=== PATIENT | male | born 1955 | race Caucasian/White ===

== ENCOUNTER → 2020-04-25 03:04 | Outpatient (CLI) | payer MEDICARE, OTHER, SELFPAY ==
[2020-04-25 18:10] LABS: SARS-CoV-2 RNA PCR Negative
== END ==
PROVIDERS: PCP Internal Medicine; Visit Provider Internal Medicine Gastroenterology
DX: Z01.812 Encounter for preprocedural laboratory examination (principal); Z20.822 Contact with and (suspected) exposure to COVID-19
CPT/HCPCS: C9803; U0003; U0005

== ENCOUNTER 2020-04-28 01:35 | Day surgery (SDC) | payer MEDICARE, OTHER, SELFPAY ==
[2020-04-22 08:39] VITALS: BMI 27.6
[2020-04-28 06:30] VITALS: BP 150/80; PULSE 51; RESP 20; TEMP 36.8; O2SAT 100; BMI 27.2
[2020-04-28 06:49] LABS: Glucose Point of Care 116 (65-105)
[2020-04-28] MEDS: LACTATED RINGERS 1,000 ML 150 ML IV CONT (06:49)
--- NOTE | 2020-04-28 07:05 | WPDANESEPPF ---
Anes - Initial Pre Proc Eval Procedure: Operation Date: 04/28/20 07:30 Proposed Procedures p Screening Colonoscopy - Federico Sow MD Date/Time: 04/28/20 07:05 Surgeon: Federico Sow MD Pre Op Diagnosis: neoplasm screening Patient Data Age: 64 Gender: M Height: 1.75 m Weight: 83.6 kg Last Vital Signs Temp 36.8 C 04/28/20 06:30 Pulse 51 L 04/28/20 06:30 Resp 20 04/28/20 06:30 BP 150/80 H 04/28/20 06:30 Pulse Ox 100 04/28/20 06:30 Allergies Allergy/AdvReac Type Severity Reaction Status Date / Time No Known Allergies Allergy Verified 04/28/20 06:29 Home Medications Medication Instructions Recorded Confirmed Type amlodipine 10 mg PO DAILY 04/22/20 04/28/20 History atorvastatin 20 mg PO DAILY 04/22/20 04/28/20 History chlorthalidone 25 mg PO DAILY 04/22/20 04/28/20 History fluocinonide 1 applic TOPICAL BID 04/22/20 04/28/20 History losartan 100 mg PO DAILY 04/22/20 04/28/20 History metformin 500 mg PO BID 04/22/20 04/28/20 History sodium,potassium,mag sulfates See Rx Instructions .ROUTE 04/22/20 Rx [Suprep Bowel Prep Kit] .COMPLEX #1 ml Laboratory Tests 04/28/20 06:46 POC Capillary Glucose 116 mg/dl H mg/dl (65-105) Patient hx anesthesia problems: none Family hx anesthesia problems: none PMFSH Past Medical History Medical History (Updated 04/28/20 @ 07:07 by Alex Shin MD) Diabetes HTN (hypertension) Hyperlipidemia Family History Family History (Updated 10/17/15 @ 23:19 by DOCTOR UNKNOWN) Sibling Family history of diabetes mellitus in first degree relative Father Family history of congestive heart failure Family history of heart disease in male family member before age 55 Family history of hearing loss Mother Family history of hearing loss Social History Social History Smoking status: Never smoker Alcohol intake: never Substance use type: does not use Living arrangements: with family Spiritual care concerns: No Anes - Eval Final PreProcedure Day of Procedure 04/28/20 07:05 Patient weight: overweight Heart: regular rate and rhythm Lungs: clear to auscultation and normal air movement Airway: Mallampati scale class II Neurological: alert and oriented Last oral intake: >/= 8 hours ASA classification: III Emergent: no Anesthetic plan: proceed Anesthesia type and monitoring: general GIVS Informed Consent: The patient's anesthetic plan and its attendant risks and benefits were discussed with the patient/family/POA. Questions were solicited and answers provided to the satisfaction of the patient/family/POA.
--- NOTE | 2020-04-28 07:31 | WPDGICN ---
Assessment and Plan Assessment and plan (1) Family history of colonic polyps: Code(s): Z83.71 - Family history of colonic polyps Status: Acute Assessment and Plan: Patient states his father has had colon polyps his brothers had colon cancer. Plan is for surveillance colonoscopy now on a 5 year intervals in the future because of the strong family history. (2) Encounter for colonoscopy in patient with family history of colon cancer: Code(s): Z12.11 - Encounter for screening for malignant neoplasm of colon; Z80.0 - Family history of malignant neoplasm of digestive organs Status: Acute GI Consult Note Consult date/time: 04/28/20 07:31 HPI: Anibal Taylor is a 64 year old male Presents for screening colonoscopy. Family history is significant that his father had colon polyps. His brother had colon polyps with carcinoma. Patient states that his own weight appetite bowel movements are normal. He denies abdominal pain. He denies any bleeding. Bowel habits are regular. Patient gives a history of GUZMAN. States he has had liver pancreas kidney cysts. He reports having had an ERCP with allergic reaction to contrast dye in the past. This is not felt to be an active problem. Review of Systems Review of Systems: All systems reviewed & are unremarkable except as noted in HPI and below PMFSH Past Medical History Medical History (Updated 04/28/20 @ 07:33 by Federico Sow MD) Diabetes HTN (hypertension) Hyperlipidemia Family History Family History (Updated 10/17/15 @ 23:19 by DOCTOR UNKNOWN) Sibling Family history of diabetes mellitus in first degree relative Father Family history of congestive heart failure Family history of heart disease in male family member before age 55 Family history of hearing loss Mother Family history of hearing loss Social History Social History Smoking status: Never smoker Alcohol intake: never Substance use type: does not use Living arrangements: with family Spiritual care concerns: No Meds Home Medications and Allergies Home Medications Medication Instructions Recorded Confirmed Type amlodipine 10 mg PO DAILY 04/22/20 04/28/20 History atorvastatin 20 mg PO DAILY 04/22/20 04/28/20 History chlorthalidone 25 mg PO DAILY 04/22/20 04/28/20 History fluocinonide 1 applic TOPICAL BID 04/22/20 04/28/20 History losartan 100 mg PO DAILY 04/22/20 04/28/20 History metformin 500 mg PO BID 04/22/20 04/28/20 History sodium,potassium,mag sulfates See Rx Instructions .ROUTE 04/22/20 Rx [Suprep Bowel Prep Kit] .COMPLEX #1 ml Allergies Allergy/AdvReac Type Severity Reaction Status Date / Time No Known Allergies Allergy Verified 04/28/20 06:29 Vital Signs Vital Signs - 24 hr 04/28/20 06:30 Temperature 98.3 F Pulse Rate 51 L Respiratory Rate 20 Blood Pressure 150/80 H Pulse Oximetry 100 Exam Narrative: Exam Narrative: Physical exam reveals patient to be alert. Vital signs stable. HEENT exam unremarkable. Lungs are clear to auscultation and percussion. Heart is without murmur or extra sounds. Abdominal exam bowel sounds are present soft nontender with no organomegaly. Digital external rectal exam is normal.
[2020-04-28 07:52] VITALS: BP 93/60; PULSE 51; RESP 14; O2SAT 92
[2020-04-28 08:02] VITALS: BP 103/59; PULSE 61; RESP 23; O2SAT 95
[2020-04-28 08:12] VITALS: BP 117/73; PULSE 50; RESP 18; O2SAT 95
== END 2020-04-28 08:30 | disposition home or self-care (01) ==
PROVIDERS: PCP Internal Medicine; Visit Provider Internal Medicine Gastroenterology
PROC: 0DJD8ZZ Inspection of Lower Intestinal Tract, Via Natural or Artificial Opening Endoscopic (ICD-10-PCS; CPT 45378; principal; 2020-04-28 07:30)
DX: Z12.11 Encounter for screening for malignant neoplasm of colon (principal); K64.8 Other hemorrhoids; Z83.71 Family history of colonic polyps; Z80.0 Family history of malignant neoplasm of digestive organs; I10 Essential (primary) hypertension; E78.5 Hyperlipidemia, unspecified; E11.9 Type 2 diabetes mellitus without complications; Z79.84 Long term (current) use of oral hypoglycemic drugs
CPT/HCPCS: G0105; 82948; J2001; J2704; J7120

== ENCOUNTER 2023-11-25 08:03 | Emergency (ER) | payer MEDICARE, OTHER, SELFPAY ==
[2023-11-25] VITALS (11 sets, daily range): BP systolic 129–157; BP diastolic 62–81; PULSE 51–60; RESP 13–20; TEMP 36.7; O2SAT 98–100
--- NOTE | ~2023-11-25 | CT_ITS ---
CT of the Abdomen and Pelvis: Indication: Rectal bleeding, abdominal pain Technique: 2.5 mm axial scans were obtained through the abdomen and pelvis following intravenous adm inistration of 100 cc of Omnipaque 350. Dose reduction technique was used on this scan by utilizing a utomated exposure control and iterative reconstruction technique. The dose-length product (DLP) was 4 54.21 mGy-cm. Findings: Scans through the lung bases are unremarkable. The liver, spleen, pancreas, gallbladder, left adrenal gland, and kidneys are within normal limits. 1 .4 cm right adrenal nodule present. There are atherosclerotic calcifications of the aorta. No lympha denopathy. Suggestion of extensive wall thickening of the distal transverse colon and descending colon. No bowel obstruction. No abscess or free air evident. Images through the pelvis were performed. Urinary bladder unremarkable. Prostate gland is enlarged. N o ascites. L1 vertebroplasty noted. Impression: Suspected wall thickening of the distal transverse colon and descending colon. Findings are suspiciou s for infectious/inflammatory colitis. Ischemic bowel felt to be less likely, though not definitively excluded. 1.4 cm right adrenal nodule, stable since prior MR from 12/06/2009, therefore consistent with a benign lesion. Reviewed, dictated and finalized at location . Impression: Suspected wall thickening of the distal transverse colon and descending colon. Findings are suspicious for infectious/inflammatory colitis. Ischemic bowel fel t to be less likely, though not definitively excluded. 1.4 cm right adrenal nodule, stable since prior MR from 12/06/2009, therefore co nsistent with a benign lesion.
--- NOTE | 2023-11-25 08:23 | ED.GIBLEED ---
HPI - GI Bleed General Chief complaint: GI Bleed Stated complaint: blood in stool Time Seen by Provider: 11/25/23 08:05 History of Present Illness HPI Narrative: This is a 68-year-old male with a past medical history significant for hypertension, diabetes, chronic kidney disease who presents to the emergency department with a chief complaint of GI bleeding. Patient states that he recently underwent procedure on his right upper extremity for carpal tunnel and cubital tunnel release on Tuesday last week. Patient was under general anesthesia. He states he has been constipated since then and yesterday he took multiple laxatives and prune juice cocktails to try and move his bowels and he had resultant diarrhea for a total of 12 bathroom trips. He states he was having bowel movements throughout the day and then noticed 4 bowel movement in a row he was passing several blood clots admixed with the stool that was loose. He has a history of internal hemorrhoids without any procedures previously. Last colonoscopy without any polyps or concerns for cancer/diverticula. Endorses a cramping abdominal pain especially in the left lower side that was onset prior to the bleeding episodes. He states the blood clots or dark in appearance but when he wipes he notices streaks of bright red blood. Denies any nausea, vomiting, chest pain, shortness a breath, abdominal pain in the epigastric or right side. No back pain. No fever chills. Related Data Home Medications Medication Instructions Recorded Confirmed amlodipine 10 mg tablet 10 mg PO DAILY 04/22/20 10/26/21 atorvastatin 20 mg tablet 20 mg PO DAILY 04/22/20 10/26/21 chlorthalidone 25 mg tablet 25 mg PO DAILY 04/22/20 10/26/21 fluocinonide 0.05 % topical cream 1 applic topical BID 04/22/20 10/26/21 losartan 100 mg tablet 100 mg PO DAILY 04/22/20 10/26/21 metformin 500 mg tablet 500 mg PO BID 04/22/20 10/26/21 doxazosin 2 mg tablet 2 mg PO DAILY 10/26/21 10/26/21 famotidine 20 mg tablet 20 mg PO DAILY 10/26/21 10/26/21 sildenafil 100 mg tablet (Viagra) 100 mg PO DAILY PRN 10/26/21 10/26/21 testosterone 200 mg implant pellet 200 mg subcut ONCE 10/26/21 10/26/21 dapagliflozin propanediol 10 mg mg 11/25/23 tablet (Farxiga) Allergies Allergy/AdvReac Type Severity Reaction Status Date / Time dimenhydrinate Allergy Intermediate Hallucinati Verified 10/26/21 09:26 [From Dramamine] ng Review of Systems Review of Systems: [facility] Past Medical History Medical History Autoimmune disease Diabetes HTN (hypertension) Hyperlipidemia Kidney disease Migraine Surgical History Surgical History History of ear surgery Family History Family History Sibling Family history of diabetes mellitus in first degree relative Father Family history of congestive heart failure Family history of heart disease in male family member before age 55 Family history of hearing loss Hypertension Mother Family history of hearing loss Social History Social History Smoking status: Never smoker Alcohol intake: current Substance use type: does not use Living arrangements: with family Occupation/Education: retired Spiritual care concerns: No Exam Narrative: GENERAL: [Well-appearing, well-nourished, and in no acute distress.] HEAD: [Normocephalic, atraumatic.] EYES: [PERRLA and EOMI.] ENT: Nares clear, no rhinorrhea or epistaxis. Mucous membranes moist. NECK: Supple. CHEST: [Clear to auscultation. No respiratory distress.] HEART: [Regular rate and rhythm]. No murmur heard. [Normal peripheral pulses.] ABDOMEN: [Soft, nondistended], [nontender], [No rigidity or guarding] RECTAL: No external hemorrhoids or fissures. No ten
[2023-11-25 08:53] LABS: Basophils Percent Auto 0.3 % (0.2-1.2); Eosinophils Absolute Auto 0.5 K/mm3 (0-0.3); Hemoglobin 13.7 g/dL (14.0-18.0); Immature Granulocyte Absolute 0.05 K/mm3 (0.00-0.031); Immature Granulocyte Percent A 0.4 % (0-0.5); Lymphocytes Absolute Auto 1.39 K/mm3 (0.9-3.2); Lymphocytes Percent Auto 11.4 % (18.3-44.2); Mean Corpuscular HGB Conc 33.4 g/dl (32-36); Mean Corpuscular Hemoglobin 29.3 pg (26-34); Mean Corpuscular Volume 87.8 fl (80-100); Mean Platelet Volume 9.5 fl (7.4-10.4); Monocytes Absolute Auto 0.8 K/mm3 (0.1-0.6); Monocytes Percent Auto 6.9 % (2.6-8.5); Neutrophils Absolute Auto 9.4 K/mm3 (1.3-6.7); Platelet Count Result 221 k/mm3 (150-375); Red Blood Count 4.67 M/mm3 (4.6-6.20); Red Cell Distribution Width 14.2 % (11.5-14.5); White Blood Count 12.2 K/mm3 (4.5-10.0)
[2023-11-25 09:04] LABS: INR 0.9; Prothrombin Time 12.6 Seconds (11.1-14.7)
[2023-11-25 09:05] LABS: Partial Thromboplastin Time 26.7 Seconds (22.3-36.8)
[2023-11-25 09:06] LABS: Lactic Acid Reflex 0.9 mmol/L (0.7-2.0)
[2023-11-25 09:07] LABS: Alanine Aminotransferase 33 U/L (6-50); Albumin Level 4.4 g/dL (3.5-5.1); Alkaline Phosphatase 60 U/L (38-126); Anion Gap 11 mmol/L (4-12); Aspartate Amino Transferase 33 U/L (17-59); Bilirubin,Total 0.7 mg/dL (0.2-1.3); Blood Urea Nitrogen 28 mg/dL (9-20); Calcium 9.7 mg/dL (8.4-10.2); Carbon Dioxide 25 mmol/L (22-30); Chloride 100 mmol/L (98-107); Estimated CRCL calculation 31 ml/min; Estimated Glomerular Filt Rate 33; Glucose 142 mg/dL (65-110); Magnesium 1.8 mg/dL (1.6-2.3); Potassium 4.5 mmol/L (3.4-5.0); Sodium 136 mmol/L (137-145)
[2023-11-25] MEDS: SODIUM CHLORIDE 0.9% IV 1,000 ML 999 ML IV CONT (09:57)
[2023-11-25] MEDS: PANTOPRAZOLE SODIUM IV 40 MG VIAL IV PUSH (09:58)
--- NOTE | 2023-11-25 10:07 | PC.NURSE ---
MD at bedside updating pt on imaging and lab results, and further POC.
== END 2023-11-25 11:21 | disposition home or self-care (01) ==
PROVIDERS: Emergency Provider Student in an Organized Health Care Education/Training Program; PCP Internal Medicine
DX: K52.9 Noninfective gastroenteritis and colitis, unspecified (principal); K62.5 Hemorrhage of anus and rectum; I12.9 Hypertensive chronic kidney disease with stage 1 through stage 4 chronic kidney disease, or unspecified chronic kidney disease; E11.22 Type 2 diabetes mellitus with diabetic chronic kidney disease; N18.9 Chronic kidney disease, unspecified; M35.9 Systemic involvement of connective tissue, unspecified
CPT/HCPCS: 36415; 74177; 80053; 83605; 83735; 85025; 85610; 85730; 86850; 86900; 86901; 96361; 96374; 99284; J2470; J7030; Q9967

== ENCOUNTER 2024-03-20 09:47 | Outpatient (CLI) | payer MEDICARE, OTHER, SELFPAY ==
--- NOTE | ~2024-03-20 | XR_ITS ---
AP view of the pelvis and AP and lateral views of the [ ] hip Clinical history: Pain Findings: No acute fracture or dislocation is seen. Osseous alignment is anatomic. Bilateral hip and SI joint spaces are preserved. Soft tissues are unremarkable. Impression: No significant abnormality is seen. Reviewed, dictated and finalized at [facility]. [facility] MARKER Impression: No significant abnormality is seen.
== END 2024-03-20 09:48 | disposition home or self-care (01) ==
LOC: MICIMG 09:48
PROVIDERS: PCP Internal Medicine; Visit Provider Orthopaedic Surgery
DX: M70.61 Trochanteric bursitis, right hip (principal)
CPT/HCPCS: 73502

== ENCOUNTER 2024-04-10 10:54 | Outpatient (CLI) | payer MEDICARE, OTHER, SELFPAY ==
--- NOTE | ~2024-04-10 | MR_ITS ---
MRI of the lumbar spine Clinical History: Radiculopathy Technique: Axial T2-weighted images, and sagittal T1-weighted, T2-weighted, and and T2 fat-sat images were acquired. Findings: There is prior vertebroplasty at L1. No other fracture or sublocation seen. No bone marrow signal reality seen otherwise. At L1-L2, there is no significant disc bulge or herniation. There is moderate facet hypertrophy. No s mayelin canal stenosis or neural foraminal narrowing. At L2-L3, there is no disc bulge or herniation. There is moderate facet arthropathy. No spinal canal stenosis or neural foraminal narrowing. At L3-L4, there is no disc bulge or herniation. There is advanced facet arthropathy. No central canal stenosis or neural foraminal narrowing. At L4-L5, there is mild disc bulge with severe facet arthropathy. No central canal stenosis. There is mild left neural foraminal narrowing. Right neural foramen preserved. At L5-S1, there is minimal disc bulge with severe facet arthropathy. No central canal stenosis or sig nificant neural foraminal narrowing. Paravertebral soft tissues are unremarkable. Impression: Mild overall degenerative spondylosis, as above. Prior L1 vertebroplasty. Reviewed, dictated and finalized at location . [employer] Impression: Mild overall degenerative spondylosis, as above. Prior L1 vertebroplasty.
== END 2024-04-10 10:55 | disposition home or self-care (01) ==
LOC: GOSHIMG 10:55
PROVIDERS: PCP Orthopaedic Surgery; Visit Provider Orthopaedic Surgery
DX: M47.896 Other spondylosis, lumbar region (principal); Z98.890 Other specified postprocedural states
CPT/HCPCS: 72148

== ENCOUNTER 2024-06-07 01:27 | Day surgery (SDC) | payer MEDICARE, OTHER, SELFPAY ==
[2024-05-31 09:02] VITALS: BMI 28.1
--- OUTSIDE RECORDS SUMMARY | 2024-06-07 01:31 | XMS_ITS | Data Portability ---
Author Organization [facility] [employer], Main Office Address [address] [place] [address] Care Team Providers Care Central Supply Assistant Name Role Phone JOÃO ENRIQUEZ Primary Care Provider [phone] JOÃO ENRIQUEZ Referring Provider Assessment No assessment recorded. Plan of Treatment Reminders Order Date Submit Date Provider Last Modified By Organization Details Last Modified Time Details Appointments None recorded. Lab None recorded. Referral None recorded. Procedures None recorded. Surgeries septoplasty (SURG) 2022 023 [email or web address] Not available 3 13:27:35 Imaging None recorded. Medication Orders Ciprodex 0.3 %-0.1 % ear drops,suspe nsion 2024 025 [email or web address] [id number] [facility], [facility], [place], [address], 5 11:21:45 OraMagic Plus 10 % oral rinse suspension 2023 024 [id number], [address] [facility], [place], [place], [id number], 4 10:38:51 Patient TargetsNo targets recorded. Patient Instructions Encounter Date Encounter Id Patient Instructions Last Modified By Organization Details Last Modified Time 04/13/2023 [id number] Scalp laceration healing well. Plan is to continue on current medications no need follow-up unless any signs of an infection or inflammation of show up. Portions of the record may have been created with voice recognition software. Occasional wrong-word or s ound-a-like substitutions may have occurred due to the inherent limitations of voice recognition software. Read the chart carefully and recognize, using context, where substitutions have occurred. Keep Appt: Tue 09:40 AM [place] [email or web address] Not available 04/13/2023 10:47:46 04/05/2024 [id number] Provided a tylor d and dated clearance form for a hearing aid trial to the right ear. Prescribed Ciprodex to be used twice a day for 7 days for Eustachian tube dysfunction to the right ear. Follow-up as needed. [email or web address] Not available 04/05/2024 10:18:59 Reason for Referral None Reported. Results Created Date Observation Date Name Description Value Unit Range Abnormal Flag Note LastModifiedBy Organization Detail LastModifiedTime 03/08/2003/08/2023 BASIC METAB OLIC PANEL sodium 137 mmol/ L 137-14 5 Not Available [facility] (Lab) [address] [place] [address], [id number], 03/08/2023 11:27:14 03/08/2003/08/2023 BASIC METAB OLIC PANEL potassium 4.8 mmol/ L 3.5-5. 1 Not Available [facility] (Lab) [address] [place] [address], [address], 03/08/2023 11:27:14 03/08/20 23 03/08/2023 BASIC METAB OLIC PANEL chloride 101 mmol/ L 98-107 Not Available [facility] (Lab) [address] [place] [address], [address], 03/08/2023 11:27:14 03/08/20 23 03/08/2023 BASIC METAB OLIC PANEL carbon dioxide 27 mmol/ L 22-30 Not Available [facility] (Lab) [address] [place] [address], [address], 03/08/2023 11:27:14 03/08/20 23 03/08/2023 BASIC METAB OLIC PANEL anion gap 13.8 mmol/ L 14-22 low Not Available [facility] (Lab) [address] [place] [address], [address], 03/08/2023 11:27:14 03/08/20 23 03/08/2023 BASIC METAB OLIC PANEL glucose 113 mg/dL 70-99 high Not Available [facility] (Lab) [address] [place], [address], 03/08/2023 11:27:14 03/08/20 23 03/08/2023 BASIC METAB OLIC PANEL BUN 30 mg/dL 8-19 high Not Available [facility] (Lab) [address] [place], [address], 03/08/2023 11:27:14 03/08/20 23 03/08/2023 BASIC METAB OLIC PANEL creatinine 2.47 mg/dL 0.66-1 .25 high Not Available [facility] (Lab) [address] [place], [address], 03/08/2023 11:27:14 03/08/20 23 03/08/2023 BASIC METAB OLIC PANEL GFR 26 Refer ence Range : [place] GFR Healt hy Adult : >60 mL/mi n/1.7 3 m2 Chron ic Kidne y Disea se: 15-60 mL/mi n/1.7 3 m2 Kidne y Failu re: <15/m L/min /1.73 m2 www.n iddk. nih.g ov The MDRD study equat ion has not been valid ated in child tanya <18 years of age; pregn ant women ; the elder ly >85 years of age; or in some racia l or ethni c subgr oups, such as Hismo nics. Outsi de the valid ated cece eters , estim ated GFR is less accur ate, requi ring clini teena judgm ent on a case- by-ca se basis . Clini teena inter preta tion for other races and ages must be made by the clini eric. The MDRD study equat ion has not been valid ated for the evalu ation of serum creat inine relat ed to nutri shukri l statu s or medic ation usage . For perso ns <18 years of age, a pedia tric GFR calcu lator is avail able on the F websi te: https ://ww w.nallely santiago.o rg/pr ofess ional s/kdo qi/gf r_cal culat or Not Available [facility] (Lab) [address] [place], [address], 03/08/2023 11:27:14 03/08/20 23 03/08/2023 BASIC METAB OLIC PANEL calcium 9.6 mg/dL 8.4-10 .2 Not Available [facility] (Lab) [address] [place], [address], 03/08/2023 11:27:14 07/15/19 24 07/13/2023 CT, abdom en + pelvi s, w/o contr ast No observ ation record ed. [address] [facility] [address] [place], [address], 07/15/2023 09:32:29 11/25/19 24 11/25/2023 CT, abdom en + pelvi s, w/o contr ast No observ ation record ed. [address], [place], [address], 11/25/2023 12:07:48 03/20/20 24 03/20/2024 XR, abdom en No observ ation record ed. [address] [facility] [address], [place], [address], 03/20/2024 14:41:46 04/05/19 25 03/19/2024 audio gram + tympa nogra m No observ ation record ed. [email or web address] Nely Ayon AUD [address] [facility] [place], [place], [address], 04/23/2024 16:22:21 04/27/19 25 04/10/2024 MRI, lumba r plexu s, w/o contr ast No observ ation record ed. [address] [facility] [address] [facility] [address], [place], [address], 05/03/2024 13:32:00 05/03/19 25 MRI, lumba r spine , w/o contr ast No observ ation record ed. [address] [facility] [facility] [address], [place], [address], 05/03/2024 13:32:00 Result Notes None recorded. Problems Name Problem SNOMED Code Status Onset Date Resolution Date Notes Provider Name and Address Organization Details Recorded Time Renewal of prescripti on Active 2021 Not Available [facility] 4 01:22:57 Testicular hypofuncti on 919602328 Active Not Available [facility] 4 01:22:57 Injury of right ankle 7741157502403 9100 Active Not Available [facility] 4 01:22:57 Benign essential hypertensi on 9883836 Active Not Available [facility] 4 01:22:57 Plantar fasciitis of right foot 4855778756430 9101 Active 2020 Not Available [facility] 4 01:22:57 Sinus tarsi syndrome of right ankle 6878203289074 9107 Active 2021 Not Available [facility] 4 01:22:57 Pain of right ankle joint 3772381216776 9106 Active 2021 Not Available [facility] 4 01:22:57 Chronic pancreatit is 509309365 Active Not Available [facility] 4 01:22:57 Pure hyperchole sterolemia 520476111 Active Not Available [facility] 4 01:22:57 Low back pain 633737282 Active 2022 Not Available [facility] 4 01:22:57 Chest pain 12106733 Active Not Available [facility] 4 01:22:57 Family history of cancer of colon 840645239 Active 2020 Not Available [facility] 4 01:22:57 Type 2 diabetes mellitus without complicati on 415215163 Active Not Available [facility] 4 01:22:57 Depressive disorder 42291726 Active Not Available [facility] 4 01:22:57 Visual impairment 866650117 Active Not Available [facility] 4 01:22:57 Postconcus juan pablo syndrome 72107727 Active 2018 Not Available [facility] 4 01:22:57 Chronic kidney disease stage 3 106800846 Active 2019 Not Available [facility] 4 01:22:57 Type 2 diabetes mellitus 80219183 Active Not Available [facility] 4 01:22:57 Hypogonadi sm 47492938 Active Not Available [facility] 4 01:22:57 Cough 59217927 Active 2021 Not Available [facility] 4 01:22:57 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 2021 Not Available [facility] 4 01:22:57 COVID-19 002473753 Active 2021 Not Available [facility] 4 01:22:57 Male hypogonadi sm 08046686 Active 2022 Not Available [facility] 4 01:22:57 Lesion of left lower leg bone 5318459020093 9105 Active 2022 Not Available [facility] 4 01:22:57 Disorder of prostate 60106863 Active 2022 Not Available [facility] 4 01:22:57 Deviated nasal septum 434456338 Active 2022 Not Available [facility] 4 01:22:57 Acute sinusitis 96081357 Active 2022 Not Available [facility] 4 01:22:57 Aphthous ulcer of mouth 729710846 Active 2023 Not Available [facility] 4 01:22:57 Upper respirator y infection 65785360 Active 2023 Not Available [facility] 4 01:22:57 Scalp laceration 970602248 Active 2023 Not Available [facility] 4 01:22:57 Uvulitis 752389578 Active 2023 João Enriquez MD [address], [place], [address] , [facility] [employer] [facility] [employer] [facility] 4 14:25:34 Adenoma of right adrenal gland 7257932400129 9101 Active 2023 João Enriquez MD [address], [address], [place], [address] , [employer] [facility] [employer] [facility] 4 09:36:29 Asymmetric al sensorineu ral hearing loss 472035401 Active 2024 [employer] [address], [place], [address] , [employer] [facility] [employer] [facility] 5 10:14:59 Dysfunctio n of right eustachian tube 9955592162794 101 Active 2024 [employer] [address], [place], [address] , [employer] [facility] [employer] [facility] 5 10:17:51 Lumbar radiculopa thy 137476199 Active 2024 João Enriquez MD [address], [address], [place], [address] , [employer] [facility] [employer] [facility] 5 11:46:35 Problem Notes None recorded. Procedures Surgical History Date Name Laterality Status Provider Name and Address Organization Details Recorded Time 03/16/20 23 nasal septoplasty completed JOAN Garrett [facility] [employer] [facility] 03/18/2023 12:41:53 03/16/20 23 SEPTOPLASTY (SURG) completed Mili Henry RN [facility] [employer] [facility] 03/25/2023 09:44:58 04/28/19 21 Colonoscopy with biopsy completed Not Available [facility] 05/19/2022 06:42:53 procedure on ear completed Mili Henry RN [facility] [employer] [facility] 04/05/2024 09:34:52 Imaging Results Imaging Date Name Status LastModified by Organization Details Last Modified Time 07/13/2023 CT, abdomen + pelvis, w/o contrast completed [email or web address] [facility] [employer] [address] [place], [address], 07/15/2023 09:32:29 11/25/2023 CT, abdomen + pelvis, w/o contrast completed [address], [place], [address], 11/25/2023 12:07:48 03/20/2024 XR, abdomen completed [address] Sandra ging [address], [place], [address], 03/20/2024 14:41:46 03/19/2024 audiogram + tympanogram completed [email or web address] Nely Ayon AUD [address] [place], [address], 04/23/2024 16:22:21 04/10/2024 MRI, lumbar plexus, w/o contrast completed [address] [facility] [address] [place] [address] [address], [place], [address], 05/03/2024 13:32:00 05/03/2024 MRI, lumbar spine, w/o contrast completed [address], [place], [address], 05/03/2024 13:32:00 Procedure Notes None recorded. Medical Equipment None Reported. Allergies No known drug allergies Medications Name Sig Start Date Stop Date Status Note LastModified by Organization Details LastModified Time compound drug 04/05 completed Not Available Not Available Not Available Pravachol 40 mg tablet Take 1 tablet(s) every day by oral route at bedtime. 10/05 completed Not Available Not Available Not Available Zocor 20 mg tablet Take 1 tablet every day by oral route. active Not Available Not Available No t Available amoxicillin 500 mg capsule Take 1 capsule 3 times a day by oral route for 10 days. 11/08 completed Not Available Not Available Not Available metformin 500 mg tablet TAKE 1 TABLET BY MOUTH THREE TIMES A DAY active Not Available Not Available No t Available prednisone 10 mg tablet TAKE 2 TABLETS (20MG) BY MOUTH TWICE DAILY FOR 10 DAYS active Not Available Not Available No t Available atorvastati n 20 mg tablet TAKE 1 TABLET BY MOUTH EVERY DAY active Not Available Not Available No t Available azithromyci n 250 mg tablet TK 2 TS PO ON DAY 1, THEN TK 1 T PO D FOR 4 DAYS 10/08 completed Not Available Not Available Not Available Lidocaine Viscous 2 % mucosal solution active Not Available Not Available Not Available benzonatate 200 mg capsule Take 1 capsule 3 times a day by oral route. active Not Available Not Available No t Available levetiracet am 500 mg tablet Take 1 tablet twice a day by oral route. 10/05 completed Not Available Not Available Not Available Lotrisone 1 %-0.05 % topical cream Apply by topical route twice daily to legs active Not Available Not Available No t Available hydrocodone 5 mg-acetamin ophen 325 mg tablet TAKE 1 TABLET BY MOUTH EVERY 6 HOURS active Not Available Not Available No t Available lisinopril 20 mg tablet Take 1 tablet every day by oral route. 10/10 completed Not Available Not Available Not Available penicillin V potassium 500 mg tablet TAKE 1 TABLET BY MOUTH FOUR TIMES DAILY 04/08 completed Not Available Not Available Not Available chlorthalid one 25 mg tablet TAKE 1 TABLET BY MOUTH EVERY DAY 03/02 completed Not Available Not Available Not Available ciprofloxac in 500 mg tablet TAKE 1 TABLET BY MOUTH EVERY 12 HOURS FOR 5 DAYS 04/05 completed Not Available Not Available Not Available Tamiflu 75 mg capsule Take 1 capsule twice a day by oral route for 5 days. 10/10 completed Not Available Not Available Not Available Wellbutrin SR 100 mg tablet, 12 hr sustained-r elease Take 1 tablet twice a day by oral route. active Not Available Not Available No t Available oxycodone-a cetaminophe n 5 mg-325 mg tablet TAKE 1 TABLET BY MOUTH EVERY 4-6 HOURS NEEDED FOR PAIN 04/08 completed Not Available Not Available Not Available triamcinolo ne acetonide 0.1 % dental paste active Not Available Not Available Not Available tamsulosin 0.4 mg capsule Take 1 capsule every day by oral route. 10/05 completed Not Available Not Available Not Available meclizine 25 mg tablet Take 1 tablet 3 times a day by oral route. 10/05 completed Not Available Not Available Not Available amlodipine 10 mg tablet TAKE 1 TABLET BY MOUTH EVERY DAY active Not Available Not Available No t Available hydrocodone 7.5 mg-acetamin ophen 325 mg tablet TAKE 1 TABLET BY MOUTH EVERY 4 HOURS NEEDED 04/13 completed Not Available Not Available Not Available cephalexin 500 mg capsule TAKE 1 CAPSULE BY MOUTH FOUR TIMES DAILY 04/13 completed Not Available Not Available Not Available metformin 1,000 mg tablet one twice a day active Not Available Not Available No t Available neomycin-po lymyxin-dex ameth 3.5 mg/mL-10,00 0 unit/mL-0.1 % eye drops 04/13 completed Not Available Not Available Not Available lisinopril 10 mg tablet one tablet daily 04/12 completed Not Available Not Available Not Available Pravachol 20 mg tablet once daily 06/07 completed Not Available Not Available Not Available gabapentin 300 mg capsule Take 1 capsule 3 times a day by oral route. 10/05 completed Not Available Not Available Not Available lisinopril 5 mg tablet once daily 11/11 completed Not Available Not Available Not Available Viagra 100 mg tablet TAKE 1 TABLET (100 MG) BY ORAL ROUTE ONCE DAILY NEEDED APPROXIMA TELY 1 HOUR BEFORE SEXUAL ACTIVITY 2019 active Not Available Not Available Not Avai lable testosteron e cypionate 200 mg/mL intramuscul ar oil INJECT 1.25 ML INTO THE MUSCLE EVERY OTHER WEEK, DISCARD REMAINDER IN VIAL active Not Available Not Available No t Available Pepcid 20 mg tablet Take 1 tablet twice a day by oral route. 03/02 completed Not Available Not Available Not Available methylpredn isolone 4 mg tablets in a dose pack FOLLOW PACKAGE DIRECTION S 04/05 completed Not Available Not Available Not Available albuterol sulfate HFA 90 mcg/actuati on aerosol inhaler INHALE 2 PUFFS BY MOUTH EVERY 6 HOURS active Not Available Not Available No t Available ketoconazol e 2 % topical cream APPLY TO FACE TWICE DAILY WHEN HAVING FLARES 03/02 completed Not Available Not Available Not Available fluocinonid e 0.05 % topical cream APPLY TOPICALLY TO THE AFFECTED AREA TWICE DAILY NEEDED active Not Available Not Available No t Available cefdinir 300 mg capsule TAKE 1 CAPSULE BY MOUTH EVERY 12 HOURS FOR 10 DAYS 04/13 completed Not Available Not Available Not Available losartan 100 mg tablet TAKE 1 TABLET BY MOUTH EVERY DAY active Not Available Not Available No t Available lisinopril 2.5 mg tablet Take 1 tablet every day by oral route. 2015 active Not Available Not Available Not Avai lable gentamicin 0.1 % topical ointment APPLY A PEA SIZED AMOUNT TO LEG WOUND THREE TIMES DAILY 04/13 completed Not Available Not Available Not Available BD Luer-Lucy Syringe 3 mL 21 gauge x 1 use to administe r testoster one every 2 weeks active Not Available Not Available No t Available doxazosin 2 mg tablet TAKE 1 TABLET BY MOUTH EVERY DAY active Not Available Not Available No t Available Blood Glucose Test strips one touch ultra test strips test twice a day active Not Available Not Available No t Available Mucinex 600 mg tablet, extended release Take 1 tablet every 12 hours by oral route. 04/01 completed Not Available Not Available Not Available ciprofloxac in 0.3 %-dexametha sone 0.1 % ear drops,suspe nsion INSTILL 4 DROPS INTO THE RIGHT EAR 2 TIMES PER DAY FOR 7 DAYS 04/30 completed Not Available Not Available Not Available Levitra 10 mg tablet Take 1 tablet every day by oral route. active Not Available Not Available No t Available Cialis 5 mg tablet Take 1 tablet every day by oral route. active Not Available Not Available No t Available Cialis 10 mg tablet Take 1 tablet as needed by oral route 4 erectile dysfuncti on. 09/29 completed Not Available Not Available Not Available Cialis 20 mg tablet Take 1 TABLET EVERY DAY an hour before sexual acitivty active Not Available Not Available No t Available Viagra 04/12 completed Not Available Not Available Not Available Expectorant active Not Available Not A vailable Not Available OraMagic Plus 10 % oral rinse suspension Take 15 mL by mucous route. 04/13 completed Not Available Not Available Not Available cholecalcif dolly (vitamin D3) 25 mcg (1,000 unit) tablet TAKE 1 TABLET BY MOUTH EVERY DAY active Not Available Not Available No t Available Suprep Bowel Prep Kit 17.5 gram-3.13 gram-1.6 gram oral solution DILUTE. PLEASE SEE MAILED INSTRUCTI ONS FROM DR. KUHN S OFFICE. 06/19 completed Not Available Not Available Not Available Farxiga 10 mg tablet TAKE 1 TABLET BY MOUTH EVERY DAY active Not Available Not Available No t Available Farxiga 5 mg tablet Take 1 tablet every day by oral route. 04/13 completed Not Available Not Available Not Available Matti COVID-19 Ag Self Test kit TEST DIRECTED TODAY 10/08 completed Not Available Not Available Not Available Paxlovid 150 mg-100 mg tablets in a dose pack (Renal Dose) Take one 150 mg and one 100 mg tablet twice daily for five days active Not Available Not Available No t Available Vitals Date Recorded Body height Body mass index (BMI) Body weight Body temperature Provider Name and Address Organization Details Last Updated DateTime 03/02/2023 175.26 cm 29.5 kg/m2 39139.47 g 98.2 [degF] Mili Henry RN [facility] [employer] [facility] 03/02/2023 10:36:48 Date Recorded Body height Body mass index (BMI) Body weight Body temperature Provider Name and Address Organization Details Last Updated DateTime 03/24/2023 175.26 cm 29.1 kg/m2 14250.7 g 98 [degF] Mili Henry RN [facility] [employer] [facility] 03/24/2023 12:04:59 Date Recorded Body height Body mass index (BMI) Body weight Heart rate Oxygen saturation Oxygen saturation in Arterial blood by Pulse oximetry Systolic blood pressure Diastolic blood pressure Provider Name and Address Organization Details Last Updated DateTime 175.26 cm 28.4 kg/m2 99658.7 4 g 60 /min 99 % 99 % 120 mm[Hg] 68 mm[Hg] Valerie Cardenas CMA [facility] [employer] [facility] 10:37:37 Date Recorded Body height Body mass index (BMI) Body weight Body temperature Provider Name and Address Organization Details Last Updated DateTime 04/05/2024 175.26 cm 29.1 kg/m2 88755.7 g 98.1 [degF] Mili Henry RN [facility] [employer] [facility] 04/05/2024 09:36:35 Date Recorded Body height Provider Name an d Address Organization Details Last Updated DateTime 04/30/2024 175.26 sherlyn Cardenas CMA [facility] 04/30/2024 11:21:31 Social History Question Answer Notes LastModified by Organizat ion Details LastModified Time Tobacco Smoking Status Never Smoker Not Available [facility] 05/19/2022 06:42:29 What Is Your Level Of Alcohol Consumption? Occasional [id number] Information not available 05/19/2022 Are You Blind Or Do You Have Difficulty Seeing? No MIGRATION.79389 [id number] Information not available 05/19/2022 In The 14 Days Before Symptom Onset, Have You Had Close Contact With A Laboratory-confi rmed COVID-19 While That Case Was Ill? No MIGRATION.26436 [id number] Information not available 05/19/2022 In The 14 Days Before Symptom Onset, Have You Had Close Contact With A Person Who Is Under Investigation For COVID-19 While That Person Was Ill? No [id number].65229 [id number] Information not available 05/19/2022 Are You Deaf Or Do You Have Serious Difficulty Hearing? Yes 80% Loss In Right Ear MIGRATION.27150 [id number] Information not available 05/19/2022 What Type Of Diet Are You Following? REGULAR MIGRATION.57814 [id number] Information not available 05/19/2022 Have There Been Any Changes To Your Family Or Social Situation? No MIGRATION.79234 55716 Information not available 05/19/2022 What Is The Fluoride Status Of Your Home? Unknown MIGRATION.90870 [id number] Information not available 05/19/2022 Do You Use Insect Repellent Routinely? Yes MIGRATION.93740 [id number] Information not available 05/19/2022 Where Do You Live? [facility] MIGRATION.93875 [id number] Information not available 05/19/2022 What Was The Date Of Your Most Recent Tobacco Screening? 10/08/2021 MIGRATION.50609 [id number] Information not available 05/19/2022 What Is Your Relationship Status? MIGRATION.03837 46720 Information not available 05/19/2022 Do You Use Your Seat Belt Or Car Seat Routinely? Yes MIGRATION.24064 02191 Information not available 05/19/2022 Do You Have Smoke And Carbon Monoxide Detectors In Your Home? Yes MIGRATION.80403 28556 Information not available 05/19/2022 Do You Feel Stressed (tense, Restless, Nervous, Or Anxious, Or Unable To Sleep At Night)? [id number] MIGRATION.75094 29158 Information not available 05/19/2022 Do You Use Sunscreen Routinely? No MIGRATION.75965 18279 Information not available 05/19/2022 Has Tobacco Cessation Counseling Been Provided? No MIGRATION.19887 44138 Information not available 05/19/2022 Do You Have Any Dietary Restrictions? No MIGRATION.56836 82518 Information not available 05/19/2022 Do You Or Have You Ever Used Any Other Forms Of Tobacco Or Nicotine? No MIGRATION.34379 92740 Information not available 05/19/2022 Sex: Unknown Functional Status Question Answer Note LastModified by Organizat ion Details LastModified Time Do you have difficulty walking or climbing stairs? No MIGRATION.751951 8232 Information not available 05/19/2022 Do you have transportation difficulties? No MIGRATION.[id number] Information not available 05/19/2022 Are you able to walk? YESWOREST MIGRATION.897255 0255 Information not available 05/19/2022 Do you have difficulty doing errands alone? No MIGRATION.906613 0222 Information not available 05/19/2022 Are you able to care for yourself? Yes MIGRATION.[id number] 3166 Information not available 05/19/2022 Do you have difficulty dressing or bathing? No [id number] Information not available 05/19/2022 What is your exercise level? Heavy bikes almost daily [id number] Information not available 05/19/2022 Mental Status Question Answer Note LastModified by Organizat ion Details LastModified Time Do you have difficulty concentrating, remembering or making decisions? No [id number] Information not available 05/19/2022 Family History Nothing Reported Notes:Mother Living 85 years old Father 88 years old 3 Brothers 3 Living one has CAD two stents 1 Sisters 1 Living Father Hx ASHD, CABG Brother Hx DM (1) , Malignant polyps NO ENT Medical History Condition Response BLINDNESS N NERVE DISEASE N RHEUMATIC FEVER N BLADDER PROBLEMS N KIDNEY STONES N MRSA N OTHER # 1 N POLIO N LUNG DISEASE/DISORDER N HISTORY OF DRUG ABUSE N RADIATION / CHEMOTHERAPY N COPD N Other # 2 N BLOOD DISEASES N SURGERY N EAR OR HEARING PROBLEMS Y MUMPS N SHINGLES N BOWEL PROBLEMS N DEPRESSION (INCLUDING POST ) N STROKE/TIA N ULCERS N BENIGN PROSTATIC HYPERPLASIA N MEASLES N HYPOTENSION N MYOCARDIAL INFARCTION N OBESITY N GERD/NAUSEA N ANEURYSM N URINARY/BLADDER/KIDNEY PROBLEMS N CORONARY ARTERY DISEASE (CAD) N ADDICTION CONCERNS N ENDOMETRIOSIS N Impotence N USE OF BLOOD THINNERS N SKIN PROBLEMS N GASTROINTESTINAL DISORDER N PARATHYROID DISEASE N PERIPHERAL VASCULAR DISEASE N MUSCLE,JOINT OR BONE PROBLEMS N GASTROINTESTINAL BLEEDING N BLOOD CLOTS N ASTHMA N CATARACTS N ERECTILE DYSFUNCTION N VARICOSITIES N GI PROBLEMS N CHF N Low Testosterone N INFERTILITY N AIDS/HIV N FRACTURES N CHEMOTHERAPY / RADIATION N LIVER DISEASE N MALE HYPOGONADISM N HYPERTENSION Y Deficiency N TOURETTE'S N ANXIETY DISORDER N BLOOD TRANSFUSION N ANEMIA/BLOOD DISORDER N CHRONIC EAR INFECTIONS N BRONCHITIS N TUBERCULOSIS N GLAUCOMA N FOOT PROBLEM N DIVERTICULITIS N CHICKENPOX N SLEEP APNEA N ALLERGIES/HAYFEVER N INFECTIOUS DISEASE N HEART ARRHYTHMIA N PROSTATE N INSOMNIA N HIGH CHOLESTEROL / HYPERLIPIDEMIA Y HYPERTHYROIDISM N EYE PROBLEMS N NEUROLOGICAL PROBLEMS N EDEMA N CHRONIC PAIN SYNDROME N HYPOTHYROIDISM N CAROTID BLOCKAGE N CONSTIPATION N BACK / NECK PROBLEMS N HAVE YOU BEEN HOSPITALIZED OR SEEN IN [facility] IN THE PAST YEAR ? N ATHEROSCLEROSIS N BREAST PROBLEMS N DIALYSIS N ECZEMA N HISTORY WITH COMPLICATIONS WITH ANESTHES IA ? N OSTEOPOROSIS N ARTHRITIS N NO SIGNIFICANT PAST MEDICAL HISTORY N APPENDICITIS N DIABETES, TYPE Y BAD TEETH N ENT N SEASONAL ALLERGIES Y HEARTBURN / REFLUX N AUTISM SPECTRUM DISORDER (ASD) N HEPATITIS / LIVER DISEASE N GOUT N SLEEP DISORDER N ALZHEIMER'S DISEASE N Brain Problems N HERPES N DEMENTIA N HEADACHES/MIGRAINES N SEIZURES/EPILEPSY N VASCULAR DISEASE N PACEMAKER N Blood Disorder N DIZZINESS N HEART DISEASE/HEART PROBLEMS N KIDNEY DISEASE Y MULTIPLE SCLEROSIS N CARDIAC ARRHYTHMIA N CANCER: SPECIFY N ANESTHESIA COMPLICATIONS N ATRIAL FIBRILLATION N Gall Stones N PULMONARY EMBOLISM N AUTOIMMUNE DISEASE N Immunizations Vaccine Type Date Status Note Provider Nam e and Address Organization Details Recorded Time influenza, unspecified formulation 3 completed Not Available [facility] 04/28/2023 01:22:58 Influenza, split virus, trivalent, preservative 3 completed Not Available [facility] 04/28/2023 01:22:58 SARS-COV-2 (COVID-19) vaccine, UNSPECIFIED 1 completed Not Available [facility] 04/28/2023 01:22:58 Influenza, split virus, quadrivalent, preservative 1 completed Not Available [facility] 04/28/2023 01:22:58 influenza, unspecified formulation 2 completed Not Available [facility] 04/28/2023 01:22:58 SARS-COV-2 (COVID-19) vaccine, UNSPECIFIED 1 completed Not Available [facility] 04/28/2023 01:22:58 SARS-COV-2 (COVID-19) vaccine, UNSPECIFIED 1 completed Not Available [facility] 04/28/2023 01:22:58 Influenza, split virus, trivalent, preservative 4 completed Not Available [facility] 04/28/2023 01:22:58 Past Encounters Encounter ID Performer Location Encounter Start Date Encounter Closed Date Diagnosis/Indication Diagnosis SNOMED-CT Code Diagnosis ICD10 Code Diagnosis Note [id number] [facility] Internal Med [facility] [address] [address] 06/19/2020 00:00:00 06/19/2020 11:38:44 [id number] [facility] ENT [address] [place] [address] 06/26/2020 00:00:00 06/26/2020 14:52:52 [id number] [facility] Internal Med [facility] [address] [address] 10/09/2020 00:00:00 10/09/2020 10:33:29 [id number] [facility] Podiatry Pool [address] [place] [address] 10/13/2020 00:00:00 10/13/2020 14:04:13 [id number] [facility] Internal Med [facility] [address] [address] 04/09/2021 00:00:00 04/09/2021 10:52:15 [id number] [facility] Podiatry Pool [address] [place] [address] 05/21/2021 00:00:00 05/25/2021 12:35:47 [id number] [facility] Internal Med [facility] [address] [address] 10/08/2021 00:00:00 10/08/2021 11:20:14 [id number] [facility] Internal Med [facility] [address] [address] 04/08/2022 00:00:00 04/08/2022 10:58:25 [id number] João Enriquez MD [facility] Internal Med [facility] [address] [address] 02/23/2023 15:45:55 02/23/2023 16:23:13 Lesion of left lower leg bone 9084011734 [id number] M89.8X6 Chronic ki dney disease stage 3 166653468 N18.30 Pure hypercholesterolemia 049214834 E78.00 Type 2 santana betes mellitus without complication 018880394 E11.9 Disorder of prostate 302 62956 N42.9 [id number] Boyd Lucas MD [facility] ENT Pool [address] [place] [address] 03/02/2023 10:27:28 03/02/2023 11:27:20 Deviated nasal septum 423386100 J34.2 [id number] Boyd Lucas MD [facility] ENT Pool [address] [place] [address] 03/24/2023 11:48:35 03/24/2023 12:46:55 Deviated nasal septum 562362891 J34.2 Aphthous u lcer of mouth 552214943 K12.0 [id number] João Enriquez MD [facility] Internal Med [facility] [address] [address] 04/13/2023 10:28:41 04/13/2023 10:56:05 Scalp laceration 441097702 S01.01XA [id number] [facility] ENT Pool [address] [place] [address] 04/05/2024 09:17:59 04/05/2024 10:19:31 Asymmetrical sensorineural hearing loss 822467400 H90.5 in review of his recent audiogram, clearance has been provided to trial a hearing aid to the right ear to aid in providing amplificat ion. Dysfunctio n of right eustachian tube [id number] 695780 H69.91 [id number] João Enriquez MD [facility] Internal Med [address] [place] [address] 04/30/2024 11:00:12 04/30/2024 12:00:06 Benign essential hypertension 7676157 I10 Chronic pancreatitis 235 429090 K86.1 Chronic ki dney disease stage 3 937147072 N18.30 Type 2 santana betes mellitus without complication 729434854 E11.9 Follow-up for lumbar radiculopa thy, hypertensi on, hyperlipid emia, chronic pancreatit is, chronic kidney disease stage IIIB type 2 diabetes. Will set up with pain management and consider steroid injections . Otherwise appears to be doing well. Continue on current Rx follow-up in six months Additional Orders - Directives - Recommenda tions1. Pain management referral for right-side d lumbar radiculopa thy. Has the card of the pain management physician he is seen in the past Follow Up: 6 Months Approximat e Date: 10/27/2024 Portions of record are template driven. When necessary additional context will be provided. Additional ly some portions have been created with [employer] software. Occasional wrong-word or s ound-a-lik e substituti ons may have occurred due to the inherent limitation s of voice [employer] n software. Read the chart carefully and recognize, using context, where substituti ons may have occurred. Created: João Enriquez M.D. 04.30.2024 10:53 AM Lumbar radiculopathy 128 566237 M54.16 Pure hypercholesterolemia 629632739 E78.00 Health Concerns Section Related Observation LastModified by Organization Detai ls LastModified Time None Recorded Concern Status LastModified by Organization Details LastModified Time None Recorded Advance Directives Directive None Recorded Payers Encounter Date Sequence Insurance Name Policy Number Policy Manrique Covered Member ID Manrique Member ID Guarantor Name 03/02/2023 1 [place] Anibal Taylor [id number] Anibal Taylor 03/02/2023 2 [employer] (MEDICARE SUPPLEMENT) Anibal Taylor [id number] Anibal Farfanughlin 03/24/2023 1 [place] Anibal Mendozalin [id number] Anibal Farfanughlin 03/24/2023 2 [employer] (MEDICARE SUPPLEMENT) Anibal Farfanughlin [id number] Anibal Farfanughlin 04/13/2023 1 [place] Anibal Loo Claudia [id number] [place] 04/13/2023 2 [employer] (MEDICARE SUPPLEMENT) Anibal Farfanughlin [id number] Anibal Farfanughlin 04/05/2024 1 [place] Anibal Farfanughlin [id number] Anibal Loo Claud[place] 04/05/2024 2 [employer] (MEDICARE SUPPLEMENT) Anibal Farfanughlin [id number] Anibal Loo [place] 04/30/2024 1 [place] Anibal Farfanughlin [id number] Anibal Farfanughlin 04/30/2024 2 [employer] (MEDICARE SUPPLEMENT) Anibal Farfanughlin [id number] Anibal Farfanughlin Notes Date Note Type Note Provider Name and Address Organization Details Recorded Time 3 text/html this patient reports the left side of his nose is constantly plugged and then he has tried numerous antibiotics decongestants and nasal sprays without improvement. This has been going on for years. He also has a hearing aid which he does not wear. Boyd Lucas MD [address], [place], [address], [facility] [employer] [facility] 03/02/2023 11:08:48 4 text/html patient is doing okay following septoplasty but did develop in a viral upper respiratory infection which is also produced a cough and acute bronchitis. He reports that intermittently he is able to breathe through his nose very well and the viral upper respiratory infection is slowly improving. He also has a recurrent aphthous stomatitis Boyd Lucas MD [address], [place], [address], [place] [facility] 03/24/2023 12:21:19 4 text/html Patient Name: Anibal Melendez Of Service: Tuesday ( 04.13.2023 ): 1955 Age: 67 There has been approximately a 2 lb weight loss since 02/23/2023. This represents approximately a 1.0% change in weight. Weight change attributable to lifestyle changes. Vital Signs:Blood Pressure: Sitting Rt. Arm 120/68Pulse: Sitting 60 /min and RegularRespiratory Rate: 12Height 69 in or 1.8 mWeight 198 lb or 89.8 kgBMI 29.2Pulse Oximetry: 99 % at rest on no oxygen Chief Complaint: Addressed in HPI Problems or conditions discussed in the HPI were the only ones reviewed during the encounter.Only social and family history addressed in the HPI were reviewed during this encounter. Attendant(s): NoneConstitutional and Systemic Symptoms:none Medication Reconciliation: from medication list. History of Present Illness #1. Fell on ice approximately 10 days ago. Without feeding ducts when he slipped on the ice striking the right parietal area of his scalp. Has a curvilinear laceration measuring approximately 6-7 cm in length. It has healed well has laquita. Laquita removed without difficulty wound is healing well with good approximation of the edges. No associated signs of any infection. No loss of consciousness or any other associated complicating neurological symptomatology.: Active Medication ListDoxazosin 2 MG (TABLET - ORAL) Once DailyGlucophage 500 MG (TABLET - ORAL) One Three Times A DayNorvasc 10 MG (TABLET - ORAL) QdLosartan Potassium 100 MG (TABLET - ORAL) QdLipitor 20 MG (TABLET - ORAL) Once DailyViagra 100 MG (TABLET - ORAL) As DirectedTestosterone Cypionate 200 MG/ ML (INJECTABLE - INJECTION) 1.25 Ml Every Other WeekPepcid 20 MG TABLET, FILM COATED One Twice A DayFarxiga 5 MG TABLET, FILM COATED Once Daily Vaccination and Sbrmjnrfzrfg0802-66 Hsvcwimen2022-30 [employer] [facility] Wbmitdi8747-63 Melanoma right ucyvtj6182-54 Vetebroplasty N65314-37 Left Shoulder Wjpwbyahl7094-92 CT etiwlld8811-40 Rt. Mnxyotewtacw9644-90 CQYS3990-27 vesectomy Preventative Testing Confirmed by Our Kxopecr3904/20/2022 HAIC 6.5 % OF TOTAL HGB H010/16/2021 ALBUMIN 4.5 G/DL H010/16/2021 PSA 0.63 NG/ML N004/28/2020 COLONOSCOPY (5 YEARS) 6009/18/2019 RIIEYMQNEYLST34/01/2019 MICRO ALBUMIN 26.0 MG/DL N105/11/2015 OPTOMETRY Social HistoryDoes not smoke cigarettes. Drinking Hx: 6 to 12 cans ofsoft drinks per day.Exercise: InfrequentlySexual Hx: Sexually ActiveOccupation: Telephone RepairmanFamily HistoryMother 94 years oldFather 88 years old3 Brothers 3 Living one has CAD two stents1 Sisters 1 LivingFather Hx: ASHD, CABGBrother Hx: DM (1) , Malignant polyps João Enriquez MD [address], [place], [address], [employer] 04/13/2023 10:47:58 5 text/html This patient has a past medical history significant for type 2 diabetes, depression, hypertension, and chronic pancreatitis who presents to the office for a hearing aid clearance. He reports having hearing difficulties dating back to childhood. States that he has had an ear surgery when he was approximately 10 years of age. He has also had and tympanoplasty to the right ear. His hearing loss is affected to the right ear. He states that when he was younger he would often go to the shooting range with his father and not wear ear protection. He had an audiogram that was completed on 03/19/2024 revealing a severe to profound mixed hearing loss in the right ear in which a trial for a hearing aid to that affected ear has been recommended. He notes that approximately 2 weeks ago he started developing some intermittent stabbing pains to the right ear. Denies taking any cqhy-gle-ufnsdqw medications for symptom relief. CHAP[facility] Ring [address], [place], [address], [employer] 04/05/2024 10:19:03 5 text/html Patient Name: Anibal TaylorDate Of Service: Tuesday ( 04.30.2024 ): 1955 Age: 68 Chief Complaint: Addressed in HPI Problems or conditions discussed in the HPI were the only ones reviewed during the encounter.Only social and family history addressed in the HPI were reviewed during this encounter. Attendant(s): NoneConstitutional and Systemic Symptoms:none Medication Reconciliation: from medication list. Xghzybkuyis78-66-4800: CT scan of the abdomen pelvis revealed an unchanged right adrenal adenoma. Scattered areas of ground-glass opacification throughout both lower lung godinez suggestive of inflammatory etiology. 11-25-2023: CT scan of abdomen and pelvis 1.4 cm right adrenal nodule unchanged from previous examination from 12/06/2009 on an MRI. Suspected wall thickening distal transverse colon descending colon suspicious for possible inflammatory colitis. 04-10-2024: MRI of the lumbar spine prior L1 vertebroplasty. Mild spondylolysis at various levels mild disc bulge at L4-L5 with severe facet arthropathy L5-S1 shows minimal disc bulge with severe facet arthropathy. No significant central canal stenosis noted History of Present Illness #1. Right-sided lumbar radicular pain running all the way down the leg. Has had an MRI performed which showed no definite herniation but considerable fragment of nerve rootlets has a, lower back. There is no numbness, tingling or any saddle anesthesia. No incontinence of urine or stool. Aggravated by standing, walking, bending and any type of movement. Is taking some hydrocodone as well as steroids with lumen way of any improvement at this time. Obese set up with pain management for further evaluation.:Pain 09/27 #2. Essential Hypertension: Stage: Stage I Interval Neurological Complaints no headaches, dizziness, weakness, visual changes, ataxia, aphasia and apraxia. No shortness of breath, orthopnea or cardiovascular symptoms. No other symptoms related to end organ damage. Pressure has been under excellent control. Currently normal. No other end organ symptoms or findings. Therapy reviewed regarding management of hypertension and includes salt restriction and Losartan Potassium and Norvasc. #3. Type II Hypercholesterolaemia: Currently stopped medication against advice. No interval complaints of any muscle pain or arthralgia. No significant liver changes with medications. Last lipid panel: no testing done recently. Therapy reviewed regarding treatment of cholesterol management and include diet and Lipitor. #4. Chronic pancreatitis: Hx of chronic recurrent pancreatitis. Has not had any recent change in frequency, duration or intensity of any abdominal pain. Stool are normal and no change in consistency. There has been no weight loss or other signs of maldigestion or malabsorption. #5. History of chronic renal failure currently doing well. Currently is followed by a choker setter. Stage: CKD-3b. Albumin Stage: A1. There has been no change in urine output or color. No fever or chills. #6. Type II Diabetes: Has had no polyuria polyphagia or polydipsia. Has had no hypoglycemic like responses. No new history of any numbness, tingling, weakness or visual problems. No nausea, anorexia or other constitutional symptoms. There has been no foot problems or non healing lesions. The last HAIC was done by atmospheric sciences professor. CGM: No. Average blood sugars 125-150 mg%. Checking sugars : several times a week. Medication Types Include: Metformin and SGLT2 inhibitors Secondary complications include none. Macro-vascular complications include none. Therapy reviewed regarding diabetic management and include Farxiga and Glucophage Compliance: good Renal Protection: ARBs Lipid management: statins Urinary microalbumin: not performed recently . Ophthalmological: has seen eye doctor within the last year. Control: Unknown Active Medication ListDoxazosin 2 MG (TABLET - ORAL) Once DailyGlucophage 500 MG (TABLET - ORAL) One Three Times A DayNorvasc 10 MG (TABLET - ORAL) QdLosartan Potassium 100 MG (TABLET - ORAL) QdLipitor 20 MG (TABLET - ORAL) Once DailyViagra 100 MG (TABLET - ORAL) As DirectedTestosterone Cypionate 200 MG/ ML (INJECTABLE - INJECTION) 1.25 Ml Every Other WeekHydrocodone Bitartrate 325; 5 MG; MG TABLET One QidPepcid 20 MG TABLET, FILM COATED One Twice A DayFarxiga 5 MG TABLET, FILM COATED Once Daily Vaccination and Immunization(X) 2022-12 INFLUENZA(X) 2021-02 COVID PFIZER( ) 2021-02 PREVNAR 20 ED Surgical Usgrqzw2846-55 Melanoma right iduped2269-02 Vetebroplasty O23929-35 Left Shoulder Ukcnfnnir6797-53 CT yieciir3742-74 Rt. Cfuztqpodpls0899-54 YTUA6491-34 vesectomy Preventative Testing( ) 04/20/2022 HAIC 6.5 % OF TOTAL HGB H( ) 10/16/2021 Albumin 4.5 G/DL H(X) 10/16/2021 PSA 0.63 NG/ML N 10/17/2023( ) 04/28/2020 Colonoscopy (5 Years) 04/28/2025( ) 09/18/2019 Ophthalmology( ) 10/19/2018 Micro Albumin 26.0 MG/DL N( ) 03/10/2016 Optometry Social HistoryDoes not smoke cigarettes. Drinking Hx: 6 to 12 cans ofsoft drinks per day.Exercise: InfrequentlySexual Hx: Sexually ActiveOccupation: Telephone RepairmanFamily HistoryMother Living 85 years oldFather 88 years old3 Brothers 3 Living one has CAD two stents1 Sisters 1 LivingFather Hx: ASHD, CABGBrother Hx: DM (1) , Malignant polyps João Enriquez MD [address] [facility], [facility] [address], [place], [address], [place] [facility] [employer] 04/30/2024 11:54:53
--- OUTSIDE RECORDS SUMMARY | 2024-06-07 01:31 | XMS_ITS | CONTINUITY OF CARE DOCUMENT ---
Author Name baldemar mcdermott Address Unknown Organization [facility] Address [address] [place] [address] [address] [place] [address] Phone [phone] Care Team Providers Care Freight Car Loader Name Role Phone Edmundo MILLARD, Adal Unavailable Adal Wyatt MD Unavailable [phone] INSURANCE PROVIDERS Payer name Policy type / Coverage type [place] red green party ID [employer] [id number] [place] MED[place] Medicare [id number]
--- OUTSIDE RECORDS SUMMARY | 2024-06-07 01:31 | XMS_ITS | Encounter Summary ---
Author Organization [facility] Address [address] [facility] [address] [place] [address] Care Team Providers Care Agricultural Equipment Design Engineer Name Role Phone Guero Enriquez MD Primary Care Provider [phone] Nilda Krishnamurthy MD Unavailable Reason for Visit * Reason Onset Date Comments MEDICATION REFILL 05/31/2024 Encounter Details Date Type Department Care Team (Late st Contact Info) Description 05/31/2024 Refill [facility] - Nephrology [address] [place] [address], [place] [phone] Nilda Krishnamurthy MD [address] [place] [address] [facility] [place] [address] MEDICATION REFILL Social History Tobacco Use Types Packs/Day Years Used Date Smoking Tobacco: Never Smokeless Tobacco: Never Alcohol Use Standard Drinks/Week Comments Yes 0 (1 standard drink = 0.6 oz pur e alcohol) occasional PHQ-2 Answer Date Recorded Patient Health Questionnaire-2 Score 0 08/05/2023 Education Answer Date Recorded What is the highest level of school you have completed or the highest degree you have received? Master's degree (e.g., MA, MS, Dong, MEd, [employer] [place], [place]) 03/29/2022 Sex and Gender Information Value Date Recorded Sex Assigned at Male 03/26/2021 6:29 AM [employer] Gender Identity Male 03/26/2021 6:29 AM [employer] OPERATOR Sexual Orientation Straight 03/26/2021 6: 29 AM [employer] OPERATOR documented as of this encounter Functional Status Functional Status Response Date of Assess ment Is person deaf or have serious hearing difficult y? No 06/15/2018 Is person blind or have serious difficulty seein g? No 06/15/2018 Does person have serious dif ficulty walking/climbing stairs? No 06/15/2018 Does person have difficulty dressing/bathing? No 06/15/2018 Does person have difficulty doing errands alone? No 06/15/2018 Cognitive Status Response Date of Assessm ent Does person have difficulty concentrating/remembering/making decisions? No 06/10/2018 documented as of this encounter Plan of Treatment Upcoming Encounters Date Type Department Care Team (Late st Contact Info) Description 06/21/2024 1:00 PM CDT Office Visit [facility] - Endocrinology [address] [place] [phone] Nilda Krishnamurthy MD [address] [place] [address] [address] [place] [phone] Sincere Novak MD [address] [place] [address] [address] [place] [address] 08/08/2024 1:30 PM CDT Office Visit [facility] - Nephrology [address] [place] [phone] Eusebio Osorio MD [address] [place] [address] [address] [place] [phone] 10/01/2024 9:10 AM CDT Office Visit [facility] - Dermatology [address] [place] [phone] Neeraj Simms MD [address] [place] [address] [address] [place] [address] documented as of this encounter Goals Goal Patient Goal Type Associated Problems Recent Progress Patient-Stated? Author Medication Management General On track( 022 9:33 AM CDT) No O'Ness, Starr K, RN Note: Expected end date: Ongoing Interventions: Take all medications as prescribed Let your doctor know right away about any changes in your medications Make sure to request a refill of your medication at least one week prior to your last dose documented as of this encounter Visit Diagnoses Not on filedocumented in this encounter Care Teams Agricultural Equipment Design Engineer Relationship Specialty Start Date End Date Guero Enriquez MD [address] [place] [phone] PCP - General Internal Medicine 06/09/18 Nilda Krishnamurthy MD [address] [place] [address] Floor Worker [facility] 04/02/21 documented as of this encounter
--- OUTSIDE RECORDS SUMMARY | 2024-06-07 01:31 | XMS_ITS | Referral Summary ---
Author Organization [facility] Address [address] [place] [phone] Care Team Providers Care Bioinformaticist Name Role Phone Guero Enriquez MD Primary Care Provider Allergies No known active allergies Medications metFORMIN (GLUCOPHAGE) 500 mg tablet Take 500 mg by mouth 3 (three) times a day 3 7 Active testosterone cypionate (DEPO-TESTOSTE LEROY) 200 mg/mL injection Inject 200 mg into the shoulder, thigh, or buttocks every 14 (fourteen) days. Active atorvastatin (LIPITOR) 20 mg tablet Take 20 mg by mouth daily 0 Active amLODIPine (NORVASC) 10 mg tablet Take 10 mg by mouth every evening 0 Active losartan (COZAAR) 100 mg tablet Take 100 mg by mouth every morning 0 Active chlorthalidone 25 mg tablet Take 25 mg by mouth daily 1 Active sildenafiL (VIAGRA) 100 mg tablet Viagra 100 mg tablet TAKE 1 TABLET (100 MG) BY ORAL ROUTE ONCE DAILY NEEDED APPROXIMATELY 1 HOUR BEFORE SEXUAL ACTIVITY Active fluocinonide (LIDEX) 0.05 % cream fluocinonide 0.05 % topical cream APPLY TO THE AFFECTED AREA(S) BY TOPICAL ROUTE 2 TIMES PER DAY Active Active Problems Problem Noted Date Diagnosed Date Exertional dyspnea 09/29/2016 Hx of pancreatitis Social History Tobacco Use Types Packs/Day Years Used Date Smoking Tobacco: Never Smokeless Tobacco: Never Alcohol Use Standard Drinks/Week Comments Yes 0 (1 standard drink = 0.6 oz pur e alcohol) once monthly Personal Safety Answer Date Recorded Getting School Help Needed Not on file 05/20 Sex and Gender Information Value Date Recorded Sex Assigned at Not on file Legal Sex Male 10:32 AM CDT Gender Identity Not on file Sexual Orientation Not on file Last Filed Vital Signs Vital Sign Reading Time Taken Comments Blood Pressure 120/60 04/14/2020 3:11 PM [facility] Pulse 55 04/14/2020 3:11 PM [facility] Temperature - - Respiratory Rate 14 11/11/2016 1:30 PM CDT Oxygen Saturation 96% 04/14/2020 3:11 PM [facility] Inhaled Oxygen Concentration - - Weight 88 kg (194 lb) 04/14/2020 3:11 PM [facility] Height 175.3 cm (5' 9 ) 04/14/2020 3:11 PM [facility] Body Mass Index 28.65 04/14/2020 3:11 PM [facility] Plan of Treatment Not on file Insurance MEDICARE [facility] MEDICARE [facility] Care Teams Bioinformaticist Relationship Specialty Start Date End Date Guero Enriquez MD PCP - General Internal Medicine 09/29/16
--- OUTSIDE RECORDS SUMMARY | 2024-06-07 01:31 | XMS_ITS | Clinical Summary ---
Author Organization [facility] Address [address] [place] [address] Care Team Providers Care Geochemistry Teacher Name Role Phone Guero Enriquez MD Primary Care Provider Nilda Krishnamurthy MD Unavailable [phone] Source Comments [facility] Affiliates and Associated Physician Practices is amultiple site organization consisting of ambulatory clinics and hospital sitesin [place], [place] and [place]. This disclosure is being madepursuant to the Care Everywhere program and may not contain all information available regarding this patient. Last updated 17.[facility] Allergies Active Allergy Reactions Criticality Noted Date Comments Skin Adhesives Other 11/15/2023 Rash noted Medications * Be aware that medications may not be up to date on this document. Alwaysverify current medications with the patient. Medication Sig Dispensed Refills Start Date End Date Status Sildenafil Citrate (VIAGRA PO) Take 100 mg by mouth once daily as needed Active testosterone cypionate (DEPO-TESTOTERONE) 200 MG/ML injection Inject 1 mL into muscle every 14 days 02/13/2019 Active famotidine (PEPCID) 20 MG tablet Take 1 (one) tablet by mouth once daily as needed for Heartburn Active dapagliflozin propanediol (Farxiga) 10 MG tablet Take 1 (one) tablet by mouth every morning 90 tablet 3 06/09/2023 Active atorvastatin (Lipitor) 20 MG tablet Take 1 (one) tablet by mouth once daily Active metFORMIN (Glucophage) 500 MG tablet Take 1 (one) tablet by mouth 3 times daily Active clotrimazole-betam ethasone (Lotrisone) 1-0.05 % cream Apply by topical route twice daily to legs Active docusate sodium (Colace) 100 MG capsuleIndications :Constipation Take 1 (one) capsule by mouth 2 times daily as needed for Constipation Reasons: Constipation 11/22/2023 Active HYDROcodone-acetam inophen ([place]) 5-325 MG tabletIndications: Pain Take 1 (one) tablet by mouth every 6 hours as needed for Pain Reasons: Pain 12 tablet 11/22/2023 Active sennosides (Senna Lax) 8.6 MG tablet Take 1 (one) tablet by mouth 2 times daily as needed for Constipation Take while using narcotic pain medications, then take as needed for constipation 11/22/2023 Active vitamin D3 (Cholecalciferol) 25 MCG (1000 UNITS) tablet Take 1 (one) tablet by mouth once daily 100 tablet 3 11/29/2023 Active losartan (Cozaar) 100 MG tablet Take 1 (one) tablet by mouth once daily 90 tablet 3 12/02/2023 Active doxazosin (Cardura) 2 MG tablet Take 1 (one) tablet by mouth at bedtime 90 tablet 1 12/06/2023 Active amLODIPine (Norvasc) 10 MG tablet Take 1 (one) tablet by mouth once daily after lunch 30 tablet 5 12/15/2023 06/12/2024 Active triamcinolone acetonide (Kenalog In Orabase) 0.1 % pasteIndications:O ral lesion Apply to sores on oral mucosa 2-3 times a day after meals and at bedtime. 30 days supply 10 g 11 04/02/2024 Active Active Problems Problem Noted Date Diagnosed Date Tendinopathy of right rotator cuff 08/05/2023 Ulnar neuropathy at elbow, right 08/05/2023 Median neuropathy, right 08/05/2023 Adenoma of right adrenal gland 07/15/2023 0 07/20/2023 Uvulitis 06/24/2023 07/20/2023 Scalp laceration 04/12/2023 07/20/2023 Aphthous ulcer of mouth 03/23/2023 07/20/19 Deviated nasal septum 03/01/2023 07/20/2023 Lesion of bone of left lower leg 02/22/2023 07/20/2023 Disorder of prostate 02/22/2023 07/20/2023 Male hypogonadism 07/07/2022 07/20/2023 Low back pain 04/07/2022 07/20/2023 Injury of right ankle 03/29/2022 Fatigue 03/29/2022 Numbness and tingling in both hands 03/29/2022 Snores 03/29/2022 Nocturia 03/29/2022 Inadequate sleep hygiene 03/29/2022 Heartburn 03/29/2022 Insomnia secondary to chronic pain 03/29/2022 Orthopnea 03/29/2022 Dust exposure 03/29/2022 Poor concentration 03/29/2022 Testicular discomfort 03/29/2022 Pes planus 05/25/2021 Sinus tarsi syndrome of right ankle 05/25/2021 Arthralgia of right ankle 05/21/2021 Plantar fasciitis of right foot 10/13/2020 Impotence 01/28/2020 Hx of pancreatitis 09/21/2019 Pure hypercholesterolemia 09/21/2019 Hypogonadism 09/21/2019 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 09/21/2019 Hypertensive kidney disease with stage 3 chronic kidney disease 04/27/2019 Elevated serum creatinine 06/15/2018 Stage 3 chronic kidney disease 06/15/2018 Calculus of pancreas 06/14/2018 Atherosclerosis of aorta 06/14/2018 Essential hypertension 06/13/2018 Adrenal nodule 06/12/2018 Renal cyst, left 06/12/2018 History of actinic keratoses 06/04/2015 Hx of squamous cell carcinoma 06/04/2015 History of nonmelanoma skin cancer 03/24/2015 Nummular eczema 02/27/2015 Resolved Problems Problem Noted Date Diagnosed Date Resolved Date Upper respiratory infection 04/04/2023 07/20/2023 08/03/2023 Acute sinusitis 03/03/2023 07/20/2023 08/17/2023 Cough 08/14/2021 04/26/2022 Encounters Date Type Department Care Team Description 05/31/2024 Telephone [facility] - GI [address] [place] [phone] Eusebio Osorio MD Medication Issue 05/31/2024 Telephone [facility] - Nephrology [address] [place] [phone] Eusebio Osorio MD Med Question 05/31/2024 Refill [facility] - Nephrology [address] [place] [phone] Nilda Krishnamurthy MD MEDICATION REFILL 05/31/2024 Refill [facility] - Nephrology [address] [place] [phone] Whit De La Torre PA-C Refill Request 05/30/2024 Refill [facility] - Nephrology [address] [place] [phone] Nilda Krishnamurthy MD Refill Request 04/02/2024 9:50 AM REVENUE SPECIALIST Office Visit [facility] - Dermatology [address] [place] [phone] Neeraj Simms MD Oral lesion (Primary Dx); History of malignant melanoma; History of basal cell carcinoma; Multiple benign melanocytic nevi of upper extremity, lower extremity, and trunk; Other seborrheic keratosis; Lentigines; Neoplasm of uncertain behavior of skin 04/02/2024 Travel from Last 3 Months Immunizations Name Administration Dates Next Due INFLUENZA VACCINE, TRIV. (AF LURIA, FLUZONE TRIVALENT; 6MO+) (IIV3) 01/14/2014,01/15/2013 Covid PCT International primary monoval ent 12+ yr 0.3mL Purple cap 02/24/2021,06/08/2020,05/18/2020 FLU VACCINE QUAD IIV4 SPLIT 0.25 ML IM 1 INFLUENZA VACCINE 12/31/2022,12/31/2021,12/02/19 19 INFLUENZA VACCINE, HIGH-DOSE , QUADR. (FLUZONE HIGH-DOSE QUADRIVALENT; 65Y+), 0.7 ML (HD-IIV4) 11/23/2021,12/25/2020,12/12/2019 PNEUMOCOCCAL PCV VACCINE 01/08/2022 PNEUMOCOCCAL PCV20 CONJ VAC IM 01/07/2022 Family History Medical History Relation Name Comments CAD (Coronary Artery Disease) Brother 1 eliseo Diabetes - Type 2 Brother 1 eliseo Hypertension Brother 1 eliseo Diabetes - Type 2 Brother 2 sincere CAD (Coronary Artery Disease) Father Cardiomyopathy Father Hypertension Father Hypertension Mother 94 None Known Paternal Uncle None Known Sister Asthma Neg Hx CVA Neg Hx Cancer - Breast Neg Hx Cancer - Other Neg Hx Cancer - Skin, Melanoma Neg Hx Cancer - Skin, Non Melanoma Neg Hx Eczema Neg Hx Hemophilia Neg Hx Psoriasis Neg Hx Relation Name Status Comments Brother 1 eliseo Alive Brother 2 sincere Alive Brother 3 anthony Alive Father Maternal Aunt Maternal Grandfather Maternal Grandmother Maternal Uncle Mother 94 Other Paternal Aunt Paternal Grandfather Paternal Grandmother Paternal Uncle Sister Alive Social History Tobacco Use Types Packs/Day Years Used Date Smoking Tobacco: Never Smokeless Tobacco: Never Tobacco Cessation:Counseling Given: Not Answered Alcohol Use Standard Drinks/Week Comments Yes 0 (1 standard drink = 0.6 oz pur e alcohol) occasional PHQ-2 Answer Date Recorded Patient Health Questionnaire-2 Score 0 08/05/2023 Education Answer Date Recorded What is the highest level of school you have completed or the highest degree you have received? Master's degree (e.g., MA, MS, Dong, MEd, [employer], [place]) 03/29/2022 Sex and Gender Information Value Date Recorded Sex Assigned at Male 03/26/2021 6:29 AM REVENUE SPECIALIST Gender Identity Male 03/26/2021 6:29 AM REVENUE SPECIALIST Sexual Orientation Straight 03/26/2021 6: 29 AM REVENUE SPECIALIST Last Filed Vital Signs Vital Sign Reading Time Taken Comments Blood Pressure 146/70 03/01/2024 10:20 AM REVENUE SPECIALIST Pulse 51 03/01/2024 10:15 AM REVENUE SPECIALIST Temperature 36.5 C (97.7 F) 03/01/2024 10:15 AM REVENUE SPECIALIST Respiratory Rate 15 11/22/2023 9:34 AM CDT Oxygen Saturation 100% 03/01/2024 10:15 AM REVENUE SPECIALIST Inhaled Oxygen Concentration 21% 06/14/2018 5 :18 PM CDT Weight 89.4 kg (197 lb 3.2 oz) 03/01/2024 10:15 AM REVENUE SPECIALIST Height 175.3 cm (5' 9 ) 03/01/2024 10:15 AM REVENUE SPECIALIST Body Mass Index 29.12 03/01/2024 10:15 AM REVENUE SPECIALIST Plan of Treatment Upcoming Encounters Date Type Department Care Team (Late st Contact Info) Description 06/21/2024 1:00 PM CDT Office Visit [facility] - Endocrinology [address] [place] [address], [place] [phone] Nilda Krishnamurthy MD [address] [place] [address] [address] [place] [phone] Sincere Novak MD [address] [place] [address] [address] [place] [address] 08/08/2024 1:30 PM CDT Office Visit [facility] - Nephrology [address] [place] [address], [place] [phone] Eusebio Osorio MD [address] [place] [address] [address] [place] [phone] 10/01/2024 9:10 AM CDT Office Visit [facility] - Dermatology [address] [place] [address], [place] [phone] Neeraj Simms MD [address] [place] [address] [address] [place] [address] Health Maintenance Due Date Last Done Comments COLOGUARD (AGES 45-75) - COLON CA SCREENING [address] COLONOGRAPHY - COLON CA SCREENING 1955 FIT - COLON CA SCREENING 1955 FLEX SIG - COLON CA SCREENING 1955 MEDICARE AWV 12 MONTHS 1953 DTAP/TDAP/TD VACCINES (1 - Tdap) 1972 ZOSTER VACCINE (1 of 2) 09/01/2003 Respiratory Syncytial Virus (RSV) Vaccine Pt: or over 60 yrs (1 - Risk 60-74 years 1-dose series) 2013 DIABETES RETINOPATHY SCREENING 06/12/2018 DIABETES-FOOT EXAM WITH MONOFILAMENT 06/12/2018 COVID-19 VACCINE ( season) 2023 10/09/2021, 02/24/2021, 06/08/2020, Additional history exists INFLUENZA VACCINE (#1) 2023 , 12/31/2021, 11/23/2021, Additional history exists DEPRESSION SCREENING 03/21/2024 07/21/2023 DIABETES - URINE PROTEIN SCREENING 03/21/2024 09/13/2023, 04/12/2023, 12/21/2022, Additional history exists DIABETES-HGB A1C 09/04/2024 03/06/2024, , 03/31/2021, Additional history exists DIABETES-SERUM CREATININE 03/06/20252023, 09/13/2023, 04/12/2023, Additional history exists COLONOSCOPY - COLON CA SCREENING 04/27/2030 04/27/2020 Colorectal Cancer Screening 04/27/2030 HEPATITIS C SCREENING Completed 04/18/2019 PNEUMOCOCCAL VACCINE 50+ Completed 01/08/2022, 12/20 HEPATITIS B VACCINE Aged Out No longe r eligible based on patient's age to complete this topic HIB VACCINE Aged Out No longer eligi ble based on patient's age to complete this topic HPV VACCINE Aged Out No longer eligi ble based on patient's age to complete this topic MENINGOCOCCAL (Group B) VACCINE SHARED DECISION-MAKING Aged Out No longer eligible based on patient's age to complete this topic MENINGOCOCCAL GROUPS A/C/Y/W VACCINE Aged Out No longer eligible based on patient's age to complete this topic Goals Goal Patient Goal Type Associated Problems Recent Progress Patient-Stated? Author Medication Management General On track( 022 9:33 AM CDT) No Starr Silveira, RN Note: Expected end date: Ongoing Interventions: Take all medications as prescribed Let your doctor know right away about any changes in your medications Make sure to request a refill of your medication at least one week prior to your last dose Procedures Procedure Name Priority Date/Time Associated Diagnosis Comments [place] TANGNTL BX SKIN SINGLE LES Routine 04/02/2024 12:31 PM REVENUE SPECIALIST Neoplasm of uncertain behavior of skin DERMATOPATHOLOGY Routine 04/02/2024 12:0 0 AM REVENUE SPECIALIST Neoplasm of uncertain behavior of skin RENAL FUNCTION PANEL Routine 03/06/2024 7:25 AM REVENUE SPECIALIST Stage 3b chronic kidney disease Hypertensive kidney disease with stage 3b chronic kidney disease Albuminuria Hypovitaminosis D Diabetes mellitus due to underlying condition with diabetic nephropathy, unspecified whether oysterman insulin use HEMOGLOBIN A1C Routine 03/06/2024 7:25 AM REVENUE SPECIALIST Stage 3b chronic kidney disease Hypertensive kidney disease with stage 3b chronic kidney disease Albuminuria Hypovitaminosis D Diabetes mellitus due to underlying condition with diabetic nephropathy, unspecified whether oysterman insulin use MICROALB/CREAT RATIO URINE RANDOM PANEL Routine 09/13/2023 7:13 AM CDT Stage 3 chronic kidney disease, unspecified whether stage 3a or 3b CKD Hypertensive kidney disease with stage 3b chronic kidney disease Albuminuria Adrenal nodule HEPATITIS C ANTIBODY Routine 04/18/2019 8:35 AM REVENUE SPECIALIST Encounter for screening for other viral diseases Anemia, unspecified type Chronic kidney disease (CKD), stage III (moderate) Essential hypertension, benign Renal cyst Adrenal nodule from Last 3 Months or Most Recently Relevant to Health Maintenance Results * [place] TANGNTL BX SKIN SINGLE LES (04/02/2024 12:31 PM REVENUE SPECIALIST) Narrative Neeraj Simms MD - 04/02/2024 12:31 PM REVENUE SPECIALIST Neeraj Simms MD 04/02/2024 12:33 PM Derm - Shave Biopsy Date/Time: 04/02/2024 12:31 PM Performed by: Neeraj Simms MD Authorized by: Neeraj Simms MD Consent given by: patient Consent type: verbal Risks discussed with patient: bleeding, need for further testing/treatment, infection, scar formation, skin color change and non-diagnostic biopsy. Procedure details: Skin prep: isopropyl alcohol Anesthesia: lidocaine 1% with epi Location information See note. Number of standard lesions: 1 Total number of lesions: 1 Instrument(s) used: flexible razor blade Hemostasis achieved with aluminum chloride Wound dressing: bandage and petrolatum EBL: no blood loss Complications: none Wound care discussed with patient? yes Specimen(s) sent to pathology Patient preferred contact method(s): phone Neeraj Simms MD PROCEDURE/MINOR SURG ICAL ORDERABLES * DERMATOPATHOLOGY (04/02/2024 12:00 AM [facility]) Case Report Dermatopathology Report Case: [id number] Authorizing Provider: Neeraj Simms MD Collected: 04/02/2024 12:00 AM Ordering Location: [facility] - Received: 04/02/2024 04:26 PM Dermatology Pathologist: Zina Mcgrath MD Specimen: Skin, left frontal scalp 5:01 PM [facility] Final Diagnosis Specimen A. SKIN, left frontal scalp: VERRUCA VULGARIS, INFLAMED, SUPERFICIAL PORTIONS OF (B07.8) 5:01 PM [facility] Clinical History SCC vs Wart 5:01 PM [facility] Gross Description Specimen A: Received is one formalin filled container labeled with the patient's name and designated left frontal scalp. The specimen consists of a shave biopsy measuring 7x7x3 mm. Jar 0. 5:01 PM [facility]MAT[facility] Microscopic Description Specimen A. SKIN, left frontal scalp: Sections show papillomatosis and hypergranulosis with overlying focal parakeratosis. The base of the lesion is not visualized. Within the dermis, dilated vessels and a patchy lymphocytic infiltrate are present. 5:01 PM [facility] Disclaimer An external and internal positive and negative controls are appropriate for the histochemical, immunohistochemical and immunofluorescence stain(s) in this case (if any), except where stated explicitly. The performance characteristics of the stain(s) cited in this report were developed and its performance characteristic determined by the Dermatopathology Laboratory at [facility], directed by Dr. Marquis Ornelas. These tests need not be, and therefore are not, approved by the [place] Food and Drug Administration. The tests are used for clinical purposes. Billing Codes Specimen Charges Stain Charges 46226 1 5:01 PM [facility] Embedded Images 5:01 PM REVENUE SPECIALIST DERMATOPATHOLOGY LABORATORY Pathology/Cytolog y TISSUE SPECIMEN FROM SKIN / Unknown 04/02/2024 04/02/2024 4:26 PM REVENUE SPECIALIST Neeraj Simms MD LAB - PATHOLOGY/CYTO LOGY ORDERABLES DERMATOPATHOLOGY LABORATORY [facility] Department of Dermatology [address], [address] [phone] * (ABNORMAL) HEMOGLOBIN A1C (03/06/2024 7:25 AM REVENUE SPECIALIST) Hemoglobin A1c 6.9(H) <5.7 % of total Hgb [facility] Comment: For someone without known diabetes, a hemoglobin A1c value of 6.5% or greater indicates that they may have diabetes and this should be confirmed with a follow-up test. For someone with known diabetes, a value <7% indicates that their diabetes is well controlled and a value greater than or equal to 7% indicates suboptimal control. A1c targets should be individualized based on duration of diabetes, age, comorbid conditions, and other considerations. Currently, no consensus exists regarding use of hemoglobin A1c for diagnosis of diabetes for children. Test Performed at: [facility] [address] JAYE OSORIO MD Blood BLOOD SPECIMEN / Unknown 03/06/2024 7:25 AM REVENUE SPECIALIST 03/06/2024 7:30 AM REVENUE SPECIALIST Nilda Krishnamurthy MD LAB - CHEMISTRY OR DERABLES [address] [address] * (ABNORMAL) RENAL FUNCTION PANEL (03/06/2024 7:25 AM REVENUE SPECIALIST) Glucose 101(H) 65 - 99 mg/dL [facility] Comment: Fasting reference interval For someone without known diabetes, a glucose value between 100 and 125 mg/dL is consistent with prediabetes and should be confirmed with a follow-up test. BUN 27(H) 7 - 25 mg/dL [facility] Creatinine 2.24(H) 0.70 - 1.28 mg/dL [facility] eGFR by Cystatin C 31(L) > OR = 60 mL/min/1. 73m2 [facility] BUN/Creatinine Ratio 12 6 - 22 (calc) [facility] Sodium 138 135 - 146 mmol/L [facility] Potassium 4.7 3.5 - 5.3 mmol/L [facility] Chloride 103 98 - 110 mmol/L [facility] CO2 28 20 - 32 mmol/L [facility] Calcium 9.8 8.6 - 10.3 mg/dL [facility] Phosphorus 4.7(H) 2.1 - 4.3 mg/dL [facility] Albumin 4.3 3.6 - 5.1 g/dL [facility] Comment: Test Performed at: [facility] [address] JAYE OSORIO MD Blood BLOOD SPECIMEN / Unknown 03/06/2024 7:25 AM REVENUE SPECIALIST 03/06/2024 7:30 AM REVENUE SPECIALIST Nilda Krishnamurthy MD LAB - CHEMISTRY OR DERABLES Performing Organization Address City/State/[facility] Co de Phone Number [address] [address] * (ABNORMAL) MICROALB/CREAT RATIO URINE RANDOM PANEL (09/13/2023 7:13 AM CDT) Creatinine Urine 90 20 - 320 mg/dL [facility] Microalbumin Urine 51.8 mg/dL [facility] Comment: Reference Range Not established Microalbumin/Creat inine Ratio 576(H) <30 mg/g creat [facility] Comment: The ADA defines abnormalities in albumin excretion as follows: Albuminuria Category Result (mg/g creatinine) Normal to Mildly increased <30 Moderately increased 30-299 Severely increased > OR = 300 The ADA recommends that at least two of three specimens collected within a 3-6 month period be abnormal before considering a patient to be within a diagnostic category. Test Performed at: [facility] [id number] [place] [address] JAYE OSORIO MD Urine URINE SPECIMEN OBTAINED BY CLEAN CATCH PROCEDURE / Unknown 09/13/2023 7:13 AM CDT 09/13/2023 7:14 AM CDT Nilda Krishnamurthy MD LAB - URINE CHEMIS TRY ORDERABLES [facility] [address] [place] [address] * HEPATITIS C ANTIBODY (04/18/2019 8:35 AM REVENUE SPECIALIST) Hepatitis C Antibody Non-react maile Non-reac tive 04/18/2019 10:02 AM REVENUE SPECIALIST [facility] Comment: Hepatitis C Antibody screen indicates no serologic evidence of past or current infection with Hepatitis C Virus. Patients with unexplained liver disease who are immunocompromised or suspected of having acute Hepatitis C infection may benefit from Nucleic Acid Test (MIN) for Hepatitis C Viral RNA to confirm Hepatitis C status. Blood BLOOD SPECIMEN / Unknown Lab Venipuncture / Unknown 04/18/2019 8:35 AM REVENUE SPECIALIST 04/18/2019 9:04 AM REVENUE SPECIALIST Nilda Krishnamurthy MD LAB - CHEMISTRY OR DERABLES [address] [phone] from Last 3 Months or Most Recently Relevant to Health Maintenance Advance Directives * Full Code (Latest Code Status on File) Date Activated Date Inactivated Comments 06/09/2018 8:43 PM 06/15/2018 3:03 PM * Full Code Date Activated Date Inactivated Comments 06/09/2018 8:42 PM 06/09/2018 8:43 PM Care Teams Geochemistry Teacher Relationship Specialty Start Date End Date Guero Enriquez MD [facility] [address] [address] [place] [phone] PCP - General Internal Medicine 06/09/18 Nilda Krishnamurthy MD [address] [place] [phone] Electrical Engineering Director Nephrology 04/02/21
--- OUTSIDE RECORDS SUMMARY | 2024-06-07 01:31 | XMS_ITS | Encounter Summary ---
Author Organization [facility] Address [address] [place] [address] Care Team Providers Care Drawer Maker Name Role Phone Guero Enriquez MD Primary Care Provider Nilda Krishnamurthy MD Unavailable Encounter Details Date Type Department Care Team (Late st Contact Info) Description 06/16/2018 Follow-up Visit [facility] [address] [place] [address] SibuloLeroya, DO [address] [place] [address] Social History Tobacco Use Types Packs/Day Years Used Date Smoking Tobacco: Never Smokeless Tobacco: Never Alcohol Use Standard Drinks/Week Comments No 0 (1 standard drink = 0.6 oz pur e alcohol) Sex and Gender Information Value Date Recorded Sex Assigned at Male 03/26/2021 6:29 AM FIELD SERVICE REP Gender Identity Male 03/26/2021 6:29 AM FIELD SERVICE REP Sexual Orientation Straight 03/26/2021 6: 29 AM FIELD SERVICE REP documented as of this encounter Functional Status [...] No 06/10/2018 documented as of this encounter Progress Notes * Leroy De Oliveira DO - 06/16/2018 8:02 AM CDT [facility] Epidural Removal Follow up Note Epidural was removed yesterday. At that time, the catheter tip was intact upon removal. Patient hasbeen discharged since. The insertion site was non tender, non erythematous, and there is no sanguinous, serosanguinous or purulent drainage noted. Called patient, and he says he has no no sensory or motor deficits. The patient denies any urinary incontinence, bowel incontinence or saddle anesthesia. Please call with any additional questions. Leroy De Oliveira DO 06/16/18 documented in this encounter Plan of Treatment Upcoming Encounters Date Type Department Care Team (Late st Contact Info) Description 06/21/2024 1:00 PM CDT Office Visit [facility] - Endocrinology [address] [place] [address], [place] [phone] Nilda Krishnamurthy MD [address] [place] [address] [address] [place] [phone] Sincere Novak MD [address] [place] [address] [address] [place] [address] 08/08/2024 1:30 PM CDT Office Visit [facility] - Nephrology [address] [place] [address], [place] [phone] Eusebio Osorio MD [address] [place] [address] [address] [place] [phone] 10/01/2024 9:10 AM CDT [facility] [address] [place] [address], [place] [phone] Neeraj Simms MD [address] [place] [address] documented as of this encounter Visit Diagnoses Not on filedocumented in this encounter Care Teams Drawer Maker Relationship Specialty Start Date End Date Guero Enriquez MD [address] [place] [phone] PCP - General Internal Medicine 06/09/18 Nilda Krishnamurthy MD [address] [place] [phone] P[employer]her [facility]ner Nephrology 04/02/21 documented as of this encounter
--- OUTSIDE RECORDS SUMMARY | 2024-06-07 01:31 | XMS_ITS | Clinical Summary ---
Author Organization [facility] Address [address] [place] [phone] Care Team Providers Care Product Design Manager Name Role Phone Guero Enriquez MD Primary [...] Date Exertional dyspnea 09/29/2016 Hx of pancreatitis Surgical History Surgery Date Site/Laterality Comments TYMPANOPLASTY Medical History Medical History Date Comments Diabetes mellitus (HCC) Hyperlipidemia Hx of pancreatitis Family History Medical History Relation Name Comments Diabetes Brother Heart disease Father Hypertension Father Heart attack Father's Brother Heart attack Paternal Grandfather Relation Name Status Comments Brother Father Triple Bypass Father's Brother Paternal Grandfather Social History Tobacco Use Types Packs/Day Years [...] on file Sexual Orientation Not on file Obstetrics History Last Filed Vital Signs Vital Sign Reading Time Taken Comments Blood Pressure 120/60 04/14/2020 3:11 PM EDUCATION AND DEVELOPMENT MANAGER Pulse 55 04/14/2020 3:11 PM EDUCATION AND DEVELOPMENT MANAGER Temperature - - Respiratory Rate 14 11/11/2016 1:30 PM CDT Oxygen Saturation 96% 04/14/2020 3:11 PM EDUCATION AND DEVELOPMENT MANAGER Inhaled Oxygen Concentration - - Weight 88 kg (194 lb) 04/14/2020 3:11 PM EDUCATION AND DEVELOPMENT MANAGER Height 175.3 cm (5' 9 ) 04/14/2020 3:11 PM EDUCATION AND DEVELOPMENT MANAGER Body Mass Index 28.65 04/14/2020 3:11 PM EDUCATION AND DEVELOPMENT MANAGER Plan of Treatment Health Maintenance Due Date Last Done Comments Colon Cancer Screening-Colonoscopy 1955 Depression Screening 1955 Fall Risk Assessment 1955 Hepatitis C Screening 1955 DTaP/Tdap/Td Vaccine (1 - Tdap) 1964 Hepatitis B Screening 09/01/1971 Zoster Vaccine (1 of 2) 09/01/2003 Abdominal Aortic Aneurysm (A AA) Screen 2018 Well Visit 65+ 2018 Pneumococcal vaccine 65+ (2 of 2 - PPSV23) 01/08/2023 01/08/2022 Influenza Vaccine (#1) 2023 0, 12/01/2018, 01/14/2014, Additional [place] [address] MEDICARE [facility] [place] [address] MEDICARE [facility] [place] [facility] Care Teams Product Design Manager Relationship Specialty Start Date End Date Guero Enriquez MD PCP - General Internal Medicine 09/29/16
[2024-06-07 06:17] VITALS: BP 152/68; PULSE 58; RESP 18; TEMP 36.5; O2SAT 100; BMI 28.0
[2024-06-07] MEDS: LACTATED RINGERS 1,000 ML 150 ML IV CONT (06:38)
[2024-06-07 06:45] LABS: Glucose Point of Care 110 mg/dl (65-105)
--- NOTE | 2024-06-07 07:18 | P.PNAN_ITS ---
Anes - Initial Pre Proc Eval Procedure: Operation Date: 06/07/24 08:00 Proposed Procedures p Colonoscopy - Leobardo Persaud MD Date/Time: 06/07/24 07:18 Surgeon: Leobardo Persaud MD Pre Op Diagnosis: family hx colon polyps Patient Data Age: 68 Gender: M Height: 1.73 m Weight: 83.6 kg Last Vital Signs Temp 36.5 C 06/07/24 06:17 Pulse 58 L 06/07/24 06:17 Resp 18 06/07/24 06:17 BP 152/68 H 06/07/24 06:17 Pulse Ox 100 06/07/24 06:17 O2 Del Method Room Air 06/07/24 06:17 Allergies Allergy/AdvReac Type Severity Reaction Status Date / Time dimenhydrinate (From Allergy Intermediate Hallucinati Verified 06/07/24 06:24 Dramamine) ng Home Medications ?Medication ?Instructions ?Recorded ?Confirmed ?Type amlodipine 10 mg tablet 10 mg PO DAILY 04/22/20 06/07/24 History atorvastatin 20 mg tablet 20 mg PO DAILY 04/22/20 06/07/24 History losartan 100 mg tablet 100 mg PO DAILY 04/22/20 06/07/24 History doxazosin 2 mg tablet 2 mg PO DAILY 10/26/21 06/07/24 History famotidine 20 mg tablet 20 mg PO DAILY 10/26/21 06/07/24 History sildenafil 100 mg tablet (Viagra) 100 mg PO DAILY PRN sexual activity 10/26/21 05/31/24 History dapagliflozin propanediol 10 mg 10 mg PO DAILY 11/25/23 06/07/24 History tablet (Farxiga) metformin 500 mg tablet 500 mg PO TID 03/13/24 06/07/24 History testosterone cypionate 100 mg/mL 100 mg subcut ONCE 04/05/24 06/07/24 History intramuscular oil (Depo-Testosterone) hydrocodone 5 mg-acetaminophen 325 1 tablet PO Q4H PRN pain #30 tabs 04/23/24 05/31/24 Rx mg tablet Laboratory Tests 06/07/24 06:42 POC Capillary Glucose 110 H mg/dl (65-105) Patient hx anesthesia problems: none Family hx anesthesia problems: none Results Review: All pre-operative results and documents have been reviewed as part of the pre- operative evaluation. [facility] Past Medical History Medical History Autoimmune disease Kidney disease Migraine Diabetes Hyperlipidemia HTN (hypertension) Surgical History Surgical History History of ear surgery Family History Family History Sibling Family history of diabetes mellitus in first degree relative Father Family history of congestive heart failure Family history of heart disease in male family member before age 55 Family history of hearing loss Hypertension Mother Family history of hearing loss Social History Social History Smoking status: Never smoker Alcohol intake: current Substance use: never Substance use type: does not use Current Housing: Decline to Answer Concerned About Future Housing: Decline to Answer Difficulty Paying Gas/Electric Bills: Decline to Answer Difficulty Paying for Meds: Decline to Answer Currently Unemployed: Decline to Answer Education: Decline to Answer Difficulty w/ Childcare or Family Care: Decline to Answer Living arrangements: with family Occupation/Education: retired Spiritual care concerns: No Anes - Eval Final PreProcedure Day of Procedure 06/07/24 07:18 Patient weight: overweight Heart: regular rate and rhythm Lungs: clear to auscultation Airway: Mallampati scale class II Neurological: alert and oriented Last oral intake: >/= 8 hours ASA classification: III Emergent: no Anesthetic plan: proceed Anesthesia type and monitoring: general GIVS and standard monitoring Results Review: All pre-operative results and documents have been reviewed as part of the pre- operative evaluation. Informed Consent: The patient's anesthetic plan and its attendant risks and benefits were discussed with the patient/family/POA. Questions were solicited and answers provided to the satisfaction of the patient/family/POA.
--- NOTE | 2024-06-07 07:51 | PM.HPGS ---
History of Present Illness History of Present Illness Consent: Risks, benefits, and alternatives have been discussed and questions answered. Patient agrees to proceed with procedure. Chief complaint: family hx colon polyps Narrative: Anibal Taylor is a 68 year old male with last colonoscopy 2020, brother had colon cancer. Also last year had episode of blood in stool and possible colitis. Review of Systems Review of Systems: All systems reviewed & are unremarkable except as noted in HPI and below PMFSH Past Medical History Medical History (Updated 06/07/24 @ 07:52 by Leobardo Persaud MD) Family history of colon cancer Autoimmune disease Kidney disease Migraine Diabetes Hyperlipidemia HTN (hypertension) Surgical History Surgical History History of ear surgery Family History Family History Sibling Family history of diabetes mellitus in first degree relative Father Family history of congestive heart failure Family history of heart disease in male family member before age 55 Family history of hearing loss Hypertension Mother Family history of hearing loss Social History Social History Smoking status: Never smoker Alcohol intake: current Substance use: never Substance use type: does not use Current Housing: Decline to Answer Concerned About Future Housing: Decline to Answer Difficulty Paying Gas/Electric Bills: Decline to Answer Difficulty Paying for Meds: Decline to Answer Currently Unemployed: Decline to Answer Education: Decline to Answer Difficulty w/ Childcare or Family Care: Decline to Answer Living arrangements: with family Occupation/Education: retired Spiritual care concerns: No Meds Home Medications and Allergies Home Medications ?Medication ?Instructions ?Recorded ?Confirmed ?Type amlodipine 10 mg tablet 10 mg PO DAILY 04/22/20 06/07/24 History atorvastatin 20 mg tablet 20 mg PO DAILY 04/22/20 06/07/24 History losartan 100 mg tablet 100 mg PO DAILY 04/22/20 06/07/24 History doxazosin 2 mg tablet 2 mg PO DAILY 10/26/21 06/07/24 History famotidine 20 mg tablet 20 mg PO DAILY 10/26/21 06/07/24 History sildenafil 100 mg tablet (Viagra) 100 mg PO DAILY PRN sexual activity 10/26/21 05/31/24 History dapagliflozin propanediol 10 mg 10 mg PO DAILY 11/25/23 06/07/24 History tablet (Farxiga) metformin 500 mg tablet 500 mg PO TID 03/13/24 06/07/24 History testosterone cypionate 100 mg/mL 100 mg subcut ONCE 04/05/24 06/07/24 History intramuscular oil (Depo-Testosterone) hydrocodone 5 mg-acetaminophen 325 1 tablet PO Q4H PRN pain #30 tabs 04/23/24 05/31/24 Rx mg tablet Allergies Allergy/AdvReac Type Severity Reaction Status Date / Time dimenhydrinate (From Allergy Intermediate Hallucinati Verified 06/07/24 06:24 Dramamine) ng Vital Signs Vital Signs - 24 hr 06/07/24 06:17 Temperature 97.7 F Pulse Rate 58 L Respiratory Rate 18 Blood Pressure 152/68 H Pulse Oximetry 100 Oxygen Delivery Room Air Exam Const: General: comfortable and no acute distress HENMT: Face/Nose/Sinus: Normal nares present Eyes: General: appearance normal, both eyes and all related structures Neck: Neck: no JVD Resp: Auscultation: clear to auscultation bilaterally Cardio: Rate: regular rate Rhythm: regular rhythm GI: Inspection: non-distended GI Palp: Yes Soft to palpation Skin: General skin exam: normal color Neuro: General: gait normal Speech: normal speech Extrem: General: normal to inspection Psych: Mental Status: mental status grossly normal Assessment and Plan Assessment and plan (1) Hematochezia: Code(s): K92.1 - Melena Status: Acute (2) Family history of colon cancer: Code(s): Z80.0 - Family history of malignant neoplasm of digestive organs Status: Acute Assessment and Plan: colonoscopy
[2024-06-07 08:15] VITALS: BP 129/69; PULSE 51; RESP 14; O2SAT 96
[2024-06-07 08:25] VITALS: BP 136/70; PULSE 50; RESP 14; O2SAT 98
[2024-06-07 08:35] VITALS: BP 150/78; PULSE 50; RESP 22; O2SAT 98
== END 2024-06-07 08:38 | disposition home or self-care (01) ==
PROVIDERS: PCP Internal Medicine; Referring Provider Nurse Practitioner Family; Visit Provider Internal Medicine Gastroenterology
PROC: 0DJD8ZZ Inspection of Lower Intestinal Tract, Via Natural or Artificial Opening Endoscopic (ICD-10-PCS; CPT 45378; principal; 2024-06-07 08:00)
DX: Z12.11 Encounter for screening for malignant neoplasm of colon (principal); D12.2 Benign neoplasm of ascending colon; K63.5 Polyp of colon; K64.8 Other hemorrhoids; E78.5 Hyperlipidemia, unspecified; I10 Essential (primary) hypertension; E11.9 Type 2 diabetes mellitus without complications; M35.9 Systemic involvement of connective tissue, unspecified; N28.9 Disorder of kidney and ureter, unspecified; Z79.84 Long term (current) use of oral hypoglycemic drugs; Z79.891 Long term (current) use of opiate analgesic; Z98.890 Other specified postprocedural states; Z83.719 Family history of colon polyps, unspecified; Z80.0 Family history of malignant neoplasm of digestive organs; Z82.49 Family history of ischemic heart disease and other diseases of the circulatory system
CPT/HCPCS: 45385; 82948; 88305; J2003; J2704; J7120